=== PATIENT | male | born 1965 | race Caucasian/White ===

== ENCOUNTER 2021-07-21 08:02 | Outpatient (CLI) | payer OTHER, SELFPAY ==
--- NOTE | 2021-07-21 | USCV_ITS ---
Maite Mauricio Age: 56 Gender: M : 1965 Exam Date: 07/21/2021 08:34 Ordering Phys: Charles Driver MD Technologist: Exam [place] [facility] [place]ication: MURMUR BP: 120 / 86 HR: 77 Rhythm: Sinus Technical Quality: Adequate MEASUREMENTS (Male / Female) Normal Values 2D ECHO LV Diastolic Diameter PLAX 4.6 cm 4.2 - 5.9 / 3.9 - 5.3 cm LV Systolic Diameter PLAX 2.6 cm LV Chamber Size 3.4 cm IVS Diastolic Thickness 1.1 cm 0.6 - 1.0 / 0.6 - 0.9 cm IVS Systolic Thickness 1.6 cm LVPW Diastolic Thickness 1.2 cm 0.6 - 1.0 / 0.6 - 0.9 cm LVPW Systolic Thickness 1.6 cm RV Chamber Size 4.0 cm LVOT Diameter 2.1 cm LV Ejection Fraction 2D Teich 74.5 % LV Ejection Fraction MOD 2C 40.4 % LV Ejection Fraction 2C AL 42.3 % LA Diameter 4.7 cm LA Width 4.0 cm LA Height 4.8 cm RA Width 4.5 cm RA Height 5.2 cm M-MODE LV Diastolic Diameter MM 5.2 cm 4.2 - 5.9 / 3.9 - 5.3 cm LV Systolic Diameter MM 2.8 cm LV Ejection Fraction MM Teich 76.3 % IVS Diastolic Thickness MM 1.2 cm 0.6 - 1.0 / 0.6 - 0.9 cm IVS Systolic Thickness MM 1.8 cm LVPW Diastolic Thickness MM 1.0 cm 0.6 - 1.0 / 0.6 - 0.9 cm LVPW Systolic Thickness MM 2.2 cm RV Diastolic Diameter MM 1.7 cm Aortic Annulus Diameter 4.0 cm LA Ao Ratio MM 1.3 MV E Point Septal Separation 0.7 cm DOPPLER AV Peak Velocity 119.0 cm/s LVOT Peak Velocity 121.0 cm/s AV Area Cont Eq vti 3.7 cm squared AV Area Cont Eq pk 3.4 cm squared MV Area PHT 4.1 cm squared Mitral E to A Ratio 0.8 MV E' Velocity 51.0 cm/s Mitral E to MV E' Ratio 12.8 Mitral E to LV E' Lateral Ratio 11.1 Mitral E to LV E' Septal Ratio 15.3 TR Peak Velocity 238.2 cm/s TR Peak Gradient 22.7 mmHg TR Mean Velocity 218.8 cm/s TR Mean Gradient 21.5 mmHg TR Velocity Time Integral 75.3 cm TV Peak E Velocity 75.0 cm/s Right Atrial Pressure 5.0 mmHg Pulmonary Artery Systolic Pressu 27.7 mmHg PV Peak Velocity 94.0 cm/s RV Acceleration Time 0.3 s RV Ejection Time 0.3 s RV AcT/ET 0.9 FINDINGS Left Ventricle Normal left ventricular size, systolic function and wall thickness, with no regional wall motion abnormalities. Left ventricular ejection fraction is estimated at 70 %. Normal diastolic function. Right Ventricle Normal right ventricular size and systolic function. Right ventricular systolic pressure 27.7 mmHg. Right Atrium Normal right atrial size. Left Atrium Normal left atrial size. Mitral Valve Mitral valve not well visualized. No mitral valve stenosis. Trace mitral valve regurgitation. Aortic Valve Probably trileaflet aortic valve. No aortic valve stenosis. No aortic valve regurgitation. Tricuspid Valve Structurally normal tricuspid valve. Pulmonic Valve No pulmonary valve stenosis. Trace pulmonary valve regurgitation. Pericardium No pericardial effusion. Aorta Aorta not well visualized. CONCLUSIONS 1. Normal left ventricular size, systolic function and wall thickness, with no regional wall motion abnormalities. Left ventricular ejection fraction is estimated at 70 %. Normal diastolic function. 2. Normal right ventricular size and systolic function. 3. Pulmonary artery pressure estimated at 28 mm Hg. 4. No gross valvlar abnormality. 5. No prior similar studies to compare. Jyoti Mera MD (Electronically Signed) Final Date: 22 July 2021 13:19 S
== END 2021-07-21 08:03 | disposition home or self-care (01) ==
LOC: US 08:03
PROVIDERS: PCP Family Medicine; Visit Provider Family Medicine
DX: R01.1 Cardiac murmur, unspecified (principal)
CPT/HCPCS: 93306

== ENCOUNTER 2023-08-19 18:40 | Inpatient (IN) | payer MEDICAID, SELFPAY ==
[2023-08-19] VITALS (7 sets, daily range): BP systolic 102–134; BP diastolic 73–81; PULSE 99–115; RESP 16–26; O2SAT 91–98
--- NOTE | 2023-08-19 18:52 | ECG_ITS ---
[facility] Test Date: 2023-08-19 Pat Name: Hang Arora Department: Room: Gender: Male Seating And Mobility Technologist: : 1965 Requested By: Abilio Petersen Order Number: [id number] Mica MD: Jyoti Mera M.D. Measurements Intervals [place] Rate: 102 P: 48 UT: 202 QRS: -65 QRSD: 120 T: 84 QT: 368 QTc: 480 Interpretive Statements SINUS TACHYCARDIA WITH INTERPOLATED PVC POSSIBLE LEFT ATRIAL ENLARGEMENT [-0.1mV P-WAVE IN V1/V2] LEFT ANTERIOR FASCICULAR BLOCK [QRS AXIS <= -45, QR IN I, RS IN II] LEFT VENTRICULAR HYPERTROPHY AND ST-T CHANGE [VOLTAGE CRITERIA PLUS ST/T ABNORMALITY] POSSIBLE SEPTAL MYOCARDIAL INFARCTION , PROBABLY OLD [30 ms Q WAVE IN V1/V2] No previous ECG available for comparison Electronically Signed On 08-21-2023 18:43:09 HOSPITAL SCIENTIST by Jyoti Mera M.D. [id number]
--- NOTE | 2023-08-19 18:59 | ED_ITS ---
HPI - Pediatric SOB/Dyspnea General: Chief Complaint: Shortness of Breath/Dyspnea Stated Complaint: EPIG PAIN Time Seen by Provider: 08/19/23 18:50 History of Present Illness: 58-year-old male with history of cardiac murmur presents emergency room today due to chest pain and syncope episode. Son and reveals that patient went hunting all day today and upon getting home patient had some chest pain while driving into the house. Patient fell and hit his head against the concrete floor. Upon present emergency room patient was complaining of chest wall pain and described the pain as sharp sensation with severity of 7 out of 10 especially with movement. He denies any nausea, vomiting, bloody stool or dark stool. Patient also reviews that he had a sudden sharp pain across his chest prior to the syncope episode. [facility] ED PFSH: Medical History (Updated 08/20/23 @ 15:42 by Huber Armstrong MD) HTN (hypertension) Murmur Nephrolithiasis Pre-diabetes Restless leg syndrome Valvular heart disease Social History Smoking and tobacco/nicotine status: former use of tobacco/nicotine Quit status (tobacco/nicotine): has quit using Pediatric ROS Review of Systems: ALL SYSTEMS: reviewed and no additional remarkable complaints except as stated CONSTITUTIONAL: no weight loss or no weight gain CARDIOVASCULAR: chest pain; no palpitations, no syncope or no edema RESPIRATORY: pain with respirations GASTROINTESTINAL: no change in appetite or no dysphagia GENITOURINARY: no urgency, no frequency, no dysuria or no nocturia MUSCULOSKELETAL: pain; no redness, no weakness or no atrophy NEUROLOGICAL: delayed speech development; no seizures or no paralysis Pediatric Exam Const: Constitutional General: cooperative, alert, awake and other (In pain.); No confusion or intoxicated appearing HENMT: Head: contusion and hematoma Face and Sinuses: normal facial exam Mouth: Speech abnormal Eyes: General: appearance normal, both eyes and all related structures Neck: Neck: normal visual inspection, full ROM, no lymphadenopathy and no meningeal signs Chest: Chest: no crepitus and tenderness (Left-sided chest wall pain upon palpation. No obvious open laceration or a) rib (Tenderness) Resp: Auscultation: clear to auscultation bilaterally, diminished lung sounds, no rhonchi, no rubs, no stridor and no upper airway noise Percussion: percussion normal, no dullness to percussion and no hyperresonance Tactile Fremitus: tactile fremitus absent Cardio: Jugular venous distension: no JVD Palpation: normal PMI Rate: tachycardic Rhythm: regular rhythm and abnormal rhythm Heart sounds: Murmur heart sound present Bruits: no abdominal aortic bruit, no carotid bruit, no femoral bruit and no renal bruit Peripheral pulses: Peripheral pulses 2+ throughout GI: Inspection: Yes normal to inspection Palpation: Soft to palpation, No hepatosplenomegaly present, no guarding, no masses, not rigid, no splenomegaly and nontender Percussion: normal to percussion Skin: General: no rashes or lesions noted Neuro: General: Yes No meningeal signs and No confusion Cranial Nerves: CN's II-XII intact bilaterally Cognition: normal cognition Speech: Speech abnormal Motor Exam: 5/5 motor strength present throughout Sensory Exam: sensory deficit Pupils: bilateral: Regular round pupils laterality Extrem: General: normal to inspection Course Consultations: Consultation #1: Discussed patient with hospitalist. After reviewing patient's note and chart A- fib the patient should be started on septic protocol. Patient was given more IV fluid and started on antibiotics. Consultation #2: Discussed patient with on-call retail sales manager. Patient was started on heparin after reviewing CT head and CT chest. Vital Signs: Vital signs: Vital Signs Temperature 97.9 F 08/20/23 16:00 Pulse Rate 73 08/20/23 16:00 Respiratory Rate 20 H 08/20/23 16:00 Blood Pressure 112/78 08/20/23 16:00 Pulse Oximetry 94 08/20/23 16:00 Oxygen Delivery Me thod Room Air 08/20/23 16:00 Medical Decision Making Medical Decision Making Patient made comfortable emergency room extensive work-up including CBC, CMP, troponin, CT chest, CT head, EKG and troponin. Differential Diagnosis NM, PE, pneumonia, pneumothorax, chest wall contusion, syncope, brain bleed, meningitis, pneumonia electrolyte abnormalities Medical Records Yes I reviewed the patient's medical records. Lab Data 08/20/23 04:00 08/20/23 04:[address] 08/19/23 19:07 IMPRESSION: 1. Nondisplaced acute fractures of the anterior left 4th and 5th ribs. Mildly displaced acute fractures of the left anterior 6th and 7th ribs. No pneumothorax. 2. Bilateral dependent pulmonary opacities favored to represent atelectasis. There is no pleural effusion or pneumothorax. 3. Ectasia of the ascending thoracic aorta. 4. Extensive aortic valvular calcification versus valvular prosthesis. Head CT 08/19/23 19:07 IMPRESSION: No acute intracranial abnormality. Laboratory Results WBC 14.81 10^3/uL (3.29-11.43) H 08/19/23 18:57 RBC 4.80 10^6/uL (3.85-5.65) 08/19/23 18:57 Hgb 15.10 g/dL (11.27-16.99) 08/19/23 18:57 Hct 45.4 % (37-53) 08/19/23 18:57 MCV 94.6 fl (82-101) 08/19/23 18:57 MCH 31.5 pg (27-33) 08/19/23 18:57 MCHC 33.3 g/dL (30-55) 08/19/23 18:57 RDW 12.9 % (12.1-15.1) 08/19/23 18:57 Plt Count 166 10^3/cmm (157-399) 08/19/23 18:57 MPV 13.4 fL (7.4-10.4) H 08/19/23 18:57 Neut % (Auto) 52.8 % 08/19/23 18:57 Lymph % (Auto) 34.8 % 08/19/23 18:57 [place] % (Auto) 8.4 % 08/19/23 18:57 Eos % (Auto) 2.2 % 08/19/23 18:57 Baso % (Auto) 0.3 % 08/19/23 18:57 Neut # (Auto) 7.82 10^3/uL (1.8-7.7) H 08/19/23 18:57 Lymph # (Auto) 5.2 10^3/uL (0.8-4.8) H 08/19/23 18:57 [place] # (Auto) 1.2 10^3/uL (0.2-0.9) H 08/19/23 18:57 Eos # (Auto) 0.3 10^3/uL (0.0-0.8) 08/19/23 18:57 Baso # (Auto) 0.1 10^3/uL (0.0-0.1) 08/19/23 18:57 Nucleated RBC % (auto) 0 % 08/19/23 18:57 Nucleated RBCs # 0.0 /100WBC 08/19/23 18:57 PT 14.00 SECONDS (12.1-14.9) 08/19/23 18:57 INR 1.05 (0.8-1.2) 08/19/23 18:57 APTT 25.3 SECONDS (23.9-36.7) 08/19/23 18:57 Sodium 142 mmol/L (136-145) 08/19/23 18:57 Potassium 3.6 mmol/L (3.5-5.1) 08/19/23 18:57 Chloride 103 mmol/L (98-107) 08/19/23 18:57 Carbon Dioxide 19 mmol/L (22-29) L 08/19/23 18:57 Anion Gap 23.6 (5-19) H 08/19/23 18:57 BUN 19 mg/dL (8-23) 08/19/23 18:57 Creatinine 1.5 mg/dL (0.7-1.2) H 08/19/23 18:57 GFR Calculation 47.7 mL/min (90-130) L 08/19/23 18:57 Glucose 197 mg/dL (65-115) H 08/19/23 18:57 Estimat Average Glucose 180 08/19/23 18:57 Hemoglobin A1c 7.9 % (4.0-6.0) H 08/19/23 18:57 Calculated Osmolality 302 mOsm/kg (285-295) H 08/19/23 18:57 Calcium 9.7 mg/dL (8.5-10.5) 08/19/23 18:57 Total Bilirubin 0.5 mg/dL (0.15-1.2) 08/19/23 18:57 AST 45 U/L (0-40) H 08/19/23 18:57 ALT 54 U/L (0-41) H 08/19/23 18:57 Alkaline Phosphatase 70 U/L (40-130) 08/19/23 18:57 Troponin T Baseline 45 ng/L (0-15) H 08/19/23 18:57 Total Protein 7.0 g/dL (6.6-8.7) 08/19/23 18:57 Albumin 4.6 g/dL (3.5-5.2) 08/19/23 18:57 Globulin 2.4 g/dL (1.3-4.6) 08/19/23 18:57 Ethyl Alcohol < 10 mg/dL (0-10) 08/19/23 18:57 XR interpretation done by ED provider, pending radiology final review ECG Data EKG 1: Interpretation: Sinus tachycardia rate of 106. Nonspecific ST depression. WI interval 200 QT 347 QRS duration 122 Computer generated impression: Chest CT 08/19/23 19:07 IMPRESSION: 1. Nondisplaced acute fractures of the anterior left 4th and 5th ribs. Mildly displaced acute fractures of the left anterior 6th and 7th ribs. No pneumothorax. 2. Bilateral dependent pulmonary opacities favored to represent atelectasis. There is no pleural effusion or pneumothorax. 3. Ectasia of the ascending thoracic aorta. 4. Extensive aortic valvular calcification versus valvular prosthesis. Head CT 08/19/23 19:07 IMPRESSION: No acute intracranial abnormality. Critical Care Time Critical Care Time: Critical Care Time: Yes Total Critical Care Time: 45 Attestation: Time spent reviewing past medical records. Time spent discussing labs and x-ray report with family. Time spent discussing patient with the hospitalist and retail sales manager. Time spent reexamining and reevaluation patient after each treatment. Discharge Plan Discharge Patient Disposition: Admitted As Inpatient Admit Provider: Ovidio Rojas Clinical Impression: Acute non-ST elevation myocardial infarction (NSTEMI), Multiple fractures of ribs, Chest wall contusion, Closed head injury, Atrial tachycardia, Leukocytosis, Syncope Condition: Stable Coding Level of Care Code ED Director Of Restaurant for Heriberto Cordova
--- NOTE | 2023-08-19 19:07 | CTR_ITS ---
PROCEDURE INFORMATION: Exam: CT Head Without Contrast Exam date and time: 08/19/2023 7:27 PM Age: 58 years old Clinical indication: Syncope and collapse; Patient HX: Patient states he May have had a heart attack while sitting in [place] and passed out due to pain. Family states they performed chest compressions. Patient C/O of lower anterior rib and epigastric pain. ; Additional info: Head injury post syncope TECHNIQUE: Imaging protocol: Computed tomography of the head without contrast. Radiation optimization: All CT scans at this facility use at least one of these dose optimization techniques: automated exposure control; mA and/or kV adjustment per patient size (includes targeted exams where dose is matched to clinical indication); or iterative reconstruction. REPORTING DATA: Count of CT and Cardiac NM exams in prior 12 months: This patient has received 0 known CTs and 0 known cardiac nuclear medicine studies in the 12 months prior to the current study. COMPARISON: No relevant prior studies available. RADIATION DOSE METRICS: Total DLP (mGy-cm): 901.59 FINDINGS: Brain: No focal hemorrhage or midline shift is identified. Cerebral ventricles: No ventriculomegaly or evidence of acute hydrocephalus. Paranasal sinuses: The partially assessed sinuses are grossly clear. Mastoid air cells: Visualized mastoid air cells are well aerated. Bones/joints: No displaced skull fracture is noted. Soft tissues: Left posterior scalp swelling/hematoma. CT/CT head wo con* [id number] IMPRESSION: No acute intracranial abnormality.
--- NOTE | 2023-08-19 19:07 | CTR_ITS ---
PROCEDURE INFORMATION: Exam: CT Chest With Contrast; Diagnostic Exam date and time: 08/19/2023 7:30 PM Age: 58 years old Clinical indication: Intercostal and on breathing and left-sided; Patient HX: Patient states he May have had a heart attack while sitting in [place] tree [place] and passed out due to pain. Family states they performed chest compressions. Patient C/O of lower anterior rib and epigastric pain. ; Additional info: Trauma TECHNIQUE: Imaging protocol: Diagnostic computed tomography of the chest with contrast. Radiation optimization: All CT scans at this facility use at least one of these dose optimization techniques: automated exposure control; mA and/or kV adjustment per patient size (includes targeted exams where dose is matched to clinical indication); or iterative reconstruction. Contrast material: OMNI 350; Contrast volume: 100 ml; Contrast route: INTRAVENOUS (IV); REPORTING DATA: Count of CT and Cardiac NM exams in prior 12 months: This patient has received 0 known CTs and 0 known cardiac nuclear medicine studies in the 12 months prior to the current study. COMPARISON: No relevant prior studies available. RADIATION DOSE METRICS: Total DLP (mGy-cm): 1706.81 FINDINGS: Limitations: Streak and motion artifacts limit evaluation. Lungs: Bilateral dependent pulmonary opacities favored to represent atelectasis. Pleural spaces: Unremarkable. No pneumothorax. No pleural effusion. Heart: Extensive aortic valvular calcification versus valvular prosthesis. Coronary arteries: There is mild atherosclerotic calcification of the coronary arteries. Esophagus: No esophageal thickening. Mediastinal space: There are no enlarged mediastinal lymph nodes or masses. Lymph nodes: Multiple calcified left hilar lymph nodes. Vasculature: There is ectasia (mild dilatation) of the ascending thoracic aorta, measuring 4.2 cm in transaxial diameter at the level of the pulmonary artery. The proximal descending thoracic aorta measures 2.7 cm. No evidence of dissection or tear. Liver: No enhancing masses are seen. Bones/joints: Nondisplaced acute fractures of the anterior left 4th and 5th ribs. Mildly displaced acute fractures of the left anterior 6th and 7th ribs. Soft tissues: Unremarkable. Other findings: Motion artifact limits evaluation. No acute findings in the included upper abdomen. CT/CT chest w con* [id number] IMPRESSION: 1. Nondisplaced acute fractures of the anterior left 4th and 5th ribs. Mildly displaced acute fractures of the left anterior 6th and 7th ribs. No pneumothorax. 2. Bilateral dependent pulmonary opacities favored to represent atelectasis. There is no pleural effusion or pneumothorax. 3. Ectasia of the ascending thoracic aorta. 4. Extensive aortic valvular calcification versus valvular prosthesis.
[2023-08-19 19:25] LABS: Basophils # 0.1 10^3/uL (0.0-0.1); Basophils % 0.3 %; Eosinophils # 0.3 10^3/uL (0.0-0.8); Eosinophils % 2.2 %; Hematocrit 45.4 % (37-53); Lymphocytes # 5.2 10^3/uL (0.8-4.8); Lymphocytes % 34.8 %; Mean Corpuscular HGB Conc 33.3 g/dL (30-55); Mean Corpuscular Hemoglobin 31.5 pg (27-33); Mean Corpuscular Volume 94.6 fl (82-101); Mean Platelet Volume 13.4 fL (7.4-10.4); Monocytes # 1.2 10^3/uL (0.2-0.9); Monocytes % 8.4 %; Neutrophils # 7.82 10^3/uL (1.8-7.7); Neutrophils % 52.8 %; Nucleated Red Blood Cells % 0 %; Platelet Count 166 10^3/cmm (157-399); Red Cell Distribution Width 12.9 % (12.1-15.1); White Blood Count 14.81 10^3/uL (3.29-11.43)
[2023-08-19 19:36] LABS: INR 1.05 (0.8-1.2)
[2023-08-19 19:37] LABS: Partial Thromboplastin Time 25.3 SECONDS (23.9-36.7)
[2023-08-19 19:40] LABS: Alanine Aminotransferase 54 U/L (0-41); Albumin Level 4.6 g/dL (3.5-5.2); Alkaline Phosphatase 70 U/L (40-130); Anion Gap 23.6 (5-19); Aspartate Amino Transferase 45 U/L (0-40); Blood Urea Nitrogen 19 mg/dL (8-23); Calcium 9.7 mg/dL (8.5-10.5); Carbon Dioxide 19 mmol/L (22-29); Chloride 103 mmol/L (98-107); Globulin 2.4 g/dL (1.3-4.6); Glomerular Filtration Rate 47.7 mL/min (90-130); Glucose 197 mg/dL (65-115); Osmolality Calculated 302 mOsm/kg (285-295); Potassium 3.6 mmol/L (3.5-5.1); Sodium 142 mmol/L (136-145); Total Bilirubin 0.5 mg/dL (0.15-1.2)
[2023-08-19 19:42] LABS: Alcohol Level < 10 mg/dL (0-10); Creatinine Clr Calc Pharmacy 68.4101
[2023-08-19] MEDS: nitroglycerin 1 gm/inch oint Pkt 0.5 INCH TOPICAL (19:42)
[2023-08-19 19:43] LABS: Troponin(5th) Baseline 45 ng/L (0-15)
[2023-08-19] MEDS: ondansetron 2 mg/ML SDV 2 mL 4 MG IVP (19:44)
[2023-08-19] MEDS: iohexol 350 mg/mL 500 mL Btl (per mL) IV (19:44)
[2023-08-19] MEDS: morphine 4 mg/mL SDV 1 mL IVP (19:45)
[2023-08-19] MEDS: sodium chloride 0.9% 1,000 ML 999 ML IV (19:46)
[2023-08-19 19:54] LABS: Slide Review Slide Review Perform
--- NOTE | 2023-08-19 21:20 | ECG_ITS ---
[facility] Test Date: 2023-08-19 Pat Name: Hang Arora Department: Room: Gender: Male Pcat Instructor: : 1965 Requested By: Renata Sales Order Number: [id number] Mica MD: Jyoti Mera M.D. Measurements Intervals [place] Rate: 106 P: 62 PA: 200 QRS: -62 QRSD: 122 T: 78 QT: 347 QTc: 462 Interpretive Statements SINUS TACHYCARDIA LEFT ANTERIOR FASCICULAR BLOCK [QRS AXIS <= -45, QR IN I, RS IN II] MODERATE ST DEPRESSION [0.05+ mV ST DEPRESSION] Compared to ECG 08/19/2023 19:00:26 Left ventricular hypertrophy no longer present Myocardial infarct finding no longer present ST (T wave) deviation still present Electronically Signed On 08-21-2023 9:44:03 PAYROLL ASSISTANT by Jyoti Mera M.D. [id number]
[2023-08-19] MEDS: HYDROmorphone 1 mg/mL INJ 1 mL IVP (21:52)
[2023-08-19 21:53] LABS: Amphetamines Screen Urine Negative (Negative); Barbiturates Screen Urine Negative (Negative); Benzodiazepines Screen Urine Negative (Negative); Cocaine Screen Urine Negative (Negative); Opiate Screen Urine Positive (Negative); PCP Screen Urine Negative (Negative); THC Screen Urine Negative (Negative)
[2023-08-19] MEDS: diazePAM 5 mg Tablet PO (21:53)
[2023-08-19 22:23] LABS: Lactic Sepsis W/Reflex 1.7 mmol/L (0.5-2.2)
[2023-08-19 22:30] LABS: Troponin 5 2HR 341.9 ng/L (0-15); Troponin 5 2HR Delta 296.9 ABS# (0-10)
[2023-08-19 22:31] LABS: Ketone (Acetest) Serum Negative (Negative)
[2023-08-19 22:53] LABS: Estmated Average Glucose 180; Hemoglobin A1C 7.9 % (4.0-6.0)
[2023-08-19 22:56] LABS: Procalcitonin 0.08 ng/mL (0-0.5)
[2023-08-19 23:10] LABS: Base Excess VBG -0.8 mmol/L (-3.0-3.0); Blood Gas Sample Type Venous; HCO3 VBG 19.2 mmol/L (24-28); Oxygen Device ROOM AIR; PCO2 VBG 21.5 mmHg (41-51); Venous Blood Gas Hematocrit 46.5 % (42-52); pH VBG 7.56 (7.32-7.42)
[2023-08-20] VITALS (19 sets, daily range): BP systolic 109–125; BP diastolic 75–85; PULSE 71–92; RESP 17–24; TEMP 36.5–36.9; O2SAT 93–96
[2023-08-20 00:13] LABS: Add Urine Microscopic? YES; Amorphous Sediment Urine TRACE /hpf; Bilirubin Urine Neg (Negative); Blood Urine Trace (Negative); Glucose Urine UA 2+ (Normal); Ketones Urine 1+ (Negative); Leukocyte Esterase Urine Trace (Negative); Nitrate Urine Negative (Negative); Protein Urine 1+ (Negative); Specific Gravity, Urine 1.005 (1.005-1.030); Urine Appearance Clear (CLEAR); Urine Color Yellow (Yellow); Urobilinogen Urine Neg (Negative); pH Urine 6.5 (5-7)
[2023-08-20 00:14] LABS: Add Urine Culture? No
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
[2023-08-20] MEDS: meropenem 1,000 MG in sodium chloride 0.9% (plus) 50 ML 100 MG IV ×2 (00:22→08:31)
[2023-08-20] MEDS: aspirin 325 mg Tablet PO ×2 (00:34→21:03)
[2023-08-20] MEDS: sennosides-docusate Tablet 1 TAB PO ×3 (00:34→17:13)
[2023-08-20] MEDS: morphine 4 mg/mL SDV 1 mL 2 MG IVP (01:25)
[2023-08-20 01:27] LABS: Creatine Phosphokinase 243 U/L (39-308)
[2023-08-20 01:28] LABS: Troponin 5 6HR 259.5 ng/L (0-15); Troponin 5 6HR Delta 214.5 ng/L (0-12)
[2023-08-20] MEDS: heparin 5,000 unit/mL INJ 1 mL 4000 UNIT IVP (01:30)
[2023-08-20] MEDS: TRAMadol 50 mg Tablet PO ×2 (02:19→17:13)
[2023-08-20] MEDS: metoprolol tartrate 25 mg Tablet 12.5 MG PO ×3 (02:19→21:04)
[2023-08-20] MEDS: lactated ringers 1,000 ML 75 ML IV (02:22)
[2023-08-20] MEDS: vancomycin 2,000 MG/400 ML PIGGYBACK 200 MG IV (02:22)
[2023-08-20] MEDS: ondansetron 2 mg/ML SDV 2 mL 4 MG IVP (02:39)
[2023-08-20 02:58] LABS: Adenovirus Not Detected (NOT DETECT); Chlamydia Pneumoniae Not Detected (NOT DETECT); Coronavirus 229E,HKU1,NL63,OC4 Not Detected (NOT DETECT); Human Metapneumovirus Not Detected (NOT DETECT); Human Rhinovirus/Enterovirus Detected (NOT DETECT); Influenza A Not Detected (NOT DETECT); Influenza A H1 Not Detected (NOT DETECT); Influenza A H1-2009 Not Detected (NOT DETECT); Influenza A H3 Not Detected (NOT DETECT); Influenza B Not Detected (NOT DETECT); Mycoplasma Pneumoniae Not Detected (NOT DETECT); Parainfluenza Virus Type 1 Not Detected (NOT DETECT); Parainfluenza Virus Type 2 Not Detected (NOT DETECT); Parainfluenza Virus Type 3 Not Detected (NOT DETECT); Parainfluenza Virus Type 4 Not Detected (NOT DETECT); Respiratory Syncytial Virus A Not Detected (NOT DETECT); Respiratory Syncytial Virus B Not Detected (NOT DETECT); SARS-COV-2 Not Detected (NOT DETECT)
[2023-08-20 04:49] LABS: Basophils % 0.2 %; Eosinophils % 0.3 %; Hematocrit 40.3 % (37-53); Mean Corpuscular HGB Conc 32.8 g/dL (30-55); Mean Corpuscular Hemoglobin 30.9 pg (27-33); Mean Corpuscular Volume 94.4 fl (82-101); Mean Platelet Volume 13.5 fL (7.4-10.4); Monocytes # 0.7 10^3/uL (0.2-0.9); Monocytes % 6.5 %; Neutrophils # 8.81 10^3/uL (1.8-7.7); Neutrophils % 83.6 %; Nucleated Red Blood Cells % 0 %; Platelet Count 117 10^3/cmm (157-399); Red Blood Count 4.27 10^6/uL (3.85-5.65); Red Cell Distribution Width 12.8 % (12.1-15.1); White Blood Count 10.54 10^3/uL (3.29-11.43)
[2023-08-20] MEDS: HYDROmorphone 1 mg/mL INJ 1 mL IVP ×4 (04:49→21:15)
[2023-08-20 05:14] LABS: Alanine Aminotransferase 44 U/L (0-41); Alkaline Phosphatase 57 U/L (40-130); Anion Gap 12.3 (5-19); Aspartate Amino Transferase 39 U/L (0-40); Blood Urea Nitrogen 18 mg/dL (8-23); Calcium 8.7 mg/dL (8.5-10.5); Carbon Dioxide 27 mmol/L (22-29); Chloride 104 mmol/L (98-107); Globulin 2.5 g/dL (1.3-4.6); Glomerular Filtration Rate 61.8 mL/min (90-130); Glucose 222 mg/dL (65-115); Osmolality Calculated 297 mOsm/kg (285-295); Potassium 4.3 mmol/L (3.5-5.1); Sodium 139 mmol/L (136-145); Thyroid Stimulating Hormone 0.77 uIU/mL (0.27-4.20); Total Bilirubin 0.6 mg/dL (0.15-1.2); Total Protein 6.5 g/dL (6.6-8.7)
[2023-08-20 05:55] LABS: Slide Review Slide Review Perform
--- NOTE | 2023-08-20 06:00 | USCV_ITS ---
Hang Arora Age: 58 Gender: M : 1965 Exam Date: 08/20/2023 12:00 Ordering Phys: Ovidio Rojas MD Technologist: Rubin Caballero Exam Location: [facility] [place] Indication: SYNCOPE BP: 109 / 85 HR: 72 Rhythm: Sinus Technical Quality: Adequate MEASUREMENTS (Male / Female) Normal Values 2D ECHO LVOT Diameter 2.0 cm LV Ejection Fraction MOD 2C 59.0 % LV Ejection Fraction 2C AL 59.0 % LA Diameter 3.9 cm LA Width 4.7 cm LA Height 6.1 cm RA Width 3.9 cm RA Height 5.2 cm Aorta at Sinotubular Diameter 2.3 cm M-MODE Aortic Annulus Diameter 4.3 cm LA Ao Ratio MM 0.9 MV E Point Septal Separation 0.5 cm DOPPLER AV Peak Velocity 104.0 cm/s LVOT Peak Velocity 90.0 cm/s AV Area Cont Eq vti 2.8 cm squared AV Area Cont Eq pk 2.7 cm squared MV Peak Velocity 106.0 cm/s MV Area PHT 4.5 cm squared Mitral E to A Ratio 1.0 MV E' Velocity 44.5 cm/s Mitral E to MV E' Ratio 11.2 Mitral E to LV E' Lateral Ratio 9.0 Mitral E to LV E' Septal Ratio 15.3 TR Peak Velocity 133.6 cm/s TR Peak Gradient 7.1 mmHg TR Mean Velocity 94.1 cm/s TR Mean Gradient 4.0 mmHg TR Velocity Time Integral 28.4 cm Right Atrial Pressure 8.0 mmHg Pulmonary Artery Systolic Pressu 15.1 mmHg PV Peak Velocity 89.7 cm/s RV Acceleration Time 0.1 s RV Ejection Time 0.3 s RV AcT/ET 0.3 FINDINGS Left Ventricle Normal left ventricular size, systolic function and wall thickness, with no regional wall motion abnormalities. Normal left ventricular wall thickness. Stage I diastolic dysfunction Right Ventricle The right ventricle is normal in size and function. Right Atrium The right atrium is normal in size. Left Atrium The left atrium is normal in size. Mitral Valve Structurally normal mitral valve without significant stenosis or prolapse. There is trace mitral regurgitation. Aortic Valve Structurally normal aortic valve without significant sclerosis or stenosis. There is no aortic regurgitation. Tricuspid Valve Structurally normal tricuspid valve without significant stenosis. There is trace regurgitation. Pulmonary artery systolic pressure is normal. Pulmonic Valve Structurally normal pulmonic valve without significant stenosis. There is no pulmonic regurgitation. Pericardium Normal pericardium without effusion. Aorta Normal ascending aorta dimension. IVC The inferior vena cava appears normal. CONCLUSIONS James Kimball MD (Electronically Signed) Final Date: 20 August 2023 17:36 S
[2023-08-20 06:29] LABS: Glucose Point of Care 223 mg/dL (70-110)
[2023-08-20] MEDS: insulin lispro 100 unit/1 mL SUBCUT ×4 (08:27→22:00)
[2023-08-20] MEDS: lactulose oral liq 20 gm/30 mL UDC 10 GM PO (08:29)
[2023-08-20] MEDS: tamsulosin 0.4 mg Capsule PO (08:30)
[2023-08-20] MEDS: atorvastatin 40 mg Tablet 20 MG PO (08:31)
[2023-08-20] MEDS: allopurinol 300 mg Tablet PO (08:31)
[2023-08-20] MEDS: lidocaine 5% Patch 1 PATCH TOPICAL (08:32)
--- NOTE | 2023-08-20 09:00 | PC.NURSE ---
Patient is refusing the CTscan for kidney stones. He states that he has had them before and this is not anything like that.
[2023-08-20 09:14] LABS: Troponin T (5th) Once 168 ng/L (0-15)
--- NOTE | 2023-08-20 09:47 | ECG_ITS ---
[facility] Test Date: 2023-08-20 Pat Name: Hang Arora Department: Room: 111 Gender: Male Office Services Clerk: : 1965 Requested By: Huber Armstrong Order Number: [id number] Mica MD: Jyoti Mera M.D. Measurements Intervals [place] Rate: 74 P: 43 NJ: 200 QRS: -50 QRSD: 125 T: 65 QT: 403 QTc: 449 Interpretive Statements SINUS RHYTHM LEFT ANTERIOR FASCICULAR BLOCK [QRS AXIS <= -45, QR IN I, RS IN II] LEFT VENTRICULAR HYPERTROPHY AND ST-T CHANGE [VOLTAGE CRITERIA PLUS ST/T ABNORMALITY] Compared to ECG 08/19/2023 21:20:49 Left ventricular hypertrophy now present Sinus tachycardia no longer present ST (T wave) deviation still present Electronically Signed On 08-21-2023 8:10:36 WHEEL INSTALLER by Jyoti Mear M.D. [email or web address]
[2023-08-20] MEDS: enoxaparin 100 mg/mL Syringe 80 MG SUBCUT (11:01)
[2023-08-20] MEDS: nitroglycerin 1 gm/inch oint Pkt 2 INCH TOPICAL ×2 (11:02→21:03)
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
[2023-08-20 11:25] LABS: Glucose Point of Care 168 mg/dL (70-110)
[2023-08-20] MEDS: perflutren protein-a microsphr 0.22 mg/mL SDV 3 mL IV (12:58)
--- NOTE | 2023-08-20 15:34 | P.PN_ITS ---
Subjective Subjective: Patient was seen this morning, I had extensive discussion with patient and at bedside, he tells me that after deer hunting yesterday, as soon as he shot the deer, he was not feeling well, he had a lot of abdominal discomfort, chest discomfort, so he went back to his truck, he had this heavy sensation over his abdomen of his chest, as soon as he got out of his truck and walked through the door he passed out, his tells me that he was nonresponsive she thought he was not breathing, she did not check his pulse, she gave him CPR for about 3 to 4 minutes, until her daughter arrived and she also give him CPR for 1 to 2 minutes, patient was much more arousable thereafter, reports a chest heaviness, he continues to have these episodes of chest heaviness abdominal heaviness, that come on in waves, he tells me, denies a prior cardiovascular history, does have a family history of CAD he tells me that his brother during an angiogram procedure, discussed with cardiology, plan on doing coronary angiography tomorrow morning, he has been given therapeutic Lovenox, aspirin, statin, beta- rosalva, currently chest pain-free, will continue to monitor as inpatient, repeat troponin 168, cardiac echocardiogram has been ordered, he declines CT kidney stone, he denies any flank pain, dysuria, hematuria, UA within normal limits, we did discuss his rib fractures, possibly related to his fall, also possibly related to chest compressions, Vitals/I&O/Wt Last Vital Signs Temp 97.7 F 08/20/23 04:00 Pulse 71 08/20/23 12:00 Resp 20 H 08/20/23 12:00 BP 120/75 08/20/23 12:00 Pulse Ox 96 08/20/23 12:00 O2 Del Method Room Air 08/20/23 12:00 08/20/23 08/20/23 08/20/23 06:59 14:59 22:59 Intake Total 870 / 1870 1303.75 / 1303.75 Output Total 200 / 200 Balance 670 / 1670 1303.75 / 1303.75 Weight last 48 hrs Weight 123.831 kg Weight 117.934 kg Physical Exam Const: COMMON NORMALS: no acute distress and patient oriented x3 Resp: COMMON NORMALS: normal respiratory effort, No retractions, No use of accessory muscles and clear to auscultation bilaterally AUSCULTATION: clear to auscultation bilaterally Cardio: COMMON NORMALS: regular rate, regular rhythm, S1 normal heart sound present and S2 normal heart sound present RATE: regular rate RHYTHM: regular rhythm HEART SOUNDS: S1 normal heart sound present and S2 normal heart sound present GI: COMMON NORMALS: Normal to inspection, nondistended, normoactive bowel sounds present and non-tender Extremity: COMMON NORMALS: no pedal edema Neuro: COMMON NORMALS: patient oriented x3 Psych: COMMON NORMALS: mental status grossly normal Data 08/20/23 04:00 08/20/23 04:00 Micro: Microbiology 08/19/23 21:57 Blood Culture - Preliminary Blood SPECIMEN COLLECTED 08/19/23 21:50 Blood Culture - Preliminary Blood SPECIMEN COLLECTED A&P Assessment and plan (1) Acute non-ST elevation myocardial infarction (NSTEMI): - From history it sounds like patient had chest discomfort, followed by a true syncopal episode, followed by a pop stable cardiac arrest episode, as per family patient was in breathing, nonresponsive, requiring CPR, although no pulse was checked -Troponins elevated, 6-hour troponin 259 delta of 214 -Initial EKG no acute ST-T wave changes Plan ? Cardiology to evaluate, n.p.o. over midnight, angiogram tomorrow morning, ? Has received 1 dose of therapeutic Lovenox, ? Aspirin, statin, beta-rosalva, ? Nitro as needed for chest pain, ? Cardiac echo, ? We will continue to monitor closely in [facility] ? Full code, ? Lovenox for DVT prophylaxis (2) Syncope: (3) Leukocytosis: Likely reactive, from syncope, possible cardiac arrest, CPR, positive rhinovirus (4) Atrial tachycardia: (5) Multiple fractures of ribs: Incentive spirometer added. Continue home tramadol. Morphine IV for severe breakthrough pain is requested. Acetaminophen. Lidocaine patch. Monitor vitals, oxygenation. (6) Chest wall contusion: As above. No evidence of lung contusion on chest imaging or clinically. Monitor oxygenation. (7) ANAND (acute kidney injury): Continue IV fluids (8) Cardiac arrest: As above (9) Rhinovirus: Monitor Plan Diabetes: Accu-Cheks. Sliding scale insulin. CC diet. Would benefit from starting treatment on discharge as well. RLS: Takes tramadol at home. Continue. HTN: Hold lisinopril for now given ANAND History of heart murmur BPH: Continue tamsulosin History of nephrolithiasis: Currently with possible sepsis. UA has been sent. Requesting CT abdomen pelvis kidney stone protocol. Attestations Medical Necessity Statement*: Patient requires hospitalization, for possible cardiac arrest episode with chest pain, syncope, CPR in the field, NSTEMI, spoke to patient, spoke to patient's , spoke to cardiology, Diagnoses Acute non-ST elevation myocardial infarction (NSTEMI) I21.4 Syncope R55 Leukocytosis D72.829 Atrial tachycardia I47.19 Multiple fractures of ribs S22.49XA Chest wall contusion S20.219A ANAND (acute kidney injury) N17.9 Cardiac arrest I46.9 Rhinovirus B34.8
[2023-08-20 16:52] LABS: Glucose Point of Care 186 mg/dL (70-110)
[2023-08-20 20:58] LABS: Glucose Point of Care 161 mg/dL (70-110)
[2023-08-21] VITALS (15 sets, daily range): BP systolic 107–129; BP diastolic 75–93; PULSE 64–87; RESP 17–28; TEMP 36.8–38.1; O2SAT 90–97; BMI 24.4
[2023-08-21] MEDS: HYDROmorphone 1 mg/mL INJ 1 mL IVP ×3 (02:35→13:59)
[2023-08-21] MEDS: nitroglycerin 1 gm/inch oint Pkt 2 INCH TOPICAL (03:28)
[2023-08-21 05:30] LABS: Basophils % 0.1 %; Eosinophils # 0.2 10^3/uL (0.0-0.8); Eosinophils % 2.3 %; Hematocrit 38.5 % (37-53); Lymphocytes # 1.5 10^3/uL (0.8-4.8); Lymphocytes % 19.4 %; Mean Corpuscular HGB Conc 32.5 g/dL (30-55); Mean Corpuscular Volume 95.5 fl (82-101); Monocytes # 0.6 10^3/uL (0.2-0.9); Monocytes % 7.4 %; Neutrophils % 70.5 %; Nucleated Red Blood Cells % 0 %; Platelet Count 102 10^3/cmm (157-399); Red Blood Count 4.03 10^6/uL (3.85-5.65); Red Cell Distribution Width 12.9 % (12.1-15.1); White Blood Count 7.52 10^3/uL (3.29-11.43)
[2023-08-21 05:59] LABS: Alanine Aminotransferase 30 U/L (0-41); Albumin Level 3.9 g/dL (3.5-5.2); Alkaline Phosphatase 49 U/L (40-130); Anion Gap 11.1 (5-19); Aspartate Amino Transferase 24 U/L (0-40); Blood Urea Nitrogen 16 mg/dL (8-23); Carbon Dioxide 27 mmol/L (22-29); Chloride 104 mmol/L (98-107); Globulin 2.5 g/dL (1.3-4.6); Glomerular Filtration Rate 68.3 mL/min (90-130); Glucose 161 mg/dL (65-115); Osmolality Calculated 291 mOsm/kg (285-295); Potassium 4.1 mmol/L (3.5-5.1); Sodium 138 mmol/L (136-145); Total Bilirubin 0.7 mg/dL (0.15-1.2); Total Protein 6.4 g/dL (6.6-8.7)
[2023-08-21 06:08] LABS: Glucose Point of Care 175 mg/dL (70-110)
--- NOTE | 2023-08-21 08:43 | PM.PN ---
Subjective Subjective: Hang is 58 years old does not have any history of heart disease however he has a number of risk factors. Those include glucose intolerance, obesity, hypertension and dyslipidemia. He also has restless leg syndrome. Yesterday he was out hunting. He shot a deer and then started to feel funny. He got on his ATV and started back to the house. He walked up the steps and was on the porch and barely was able to knock on the door and then had a syncopal episode. His heard the noise and went out to find him passed out . She states he was out for 2 minutes. She said she beat on his chest for a while and then he snorted and started breathing. 911 was called and he was brought to the hospital. His vital signs have been stable. He has some rib fractures probably due to the fall. His troponin is elevated. The first was 45, the second 342 and the third to 59. His white blood cell count was initially elevated 14.8. It is now 7.5. His heart rate was elevated initially with a rhythm of sinus tachycardia. His heart rate is now normal. His creatinine was initially 1.5 now it is 1.1. He has a chest wall contusion. His blood sugars are elevated in the 200 range. His hemoglobin A1c is 7.9. Initially his transaminases were mildly elevated. They are now normal. His echo was normal. His EKG originally showed sinus tachycardia with a left anterior fascicular block. The tachycardia is now resolved. There are no ST or T wave changes. His chest wall hurts. Vitals/I&O/Wt Last Vital Signs Temp 99.7 F H 08/21/23 07:45 Pulse 72 08/21/23 07:45 Resp 23 H 08/21/23 07:45 BP 129/84 08/21/23 07:45 Pulse Ox 92 08/21/23 07:45 O2 Del Method Nasal Cannula 08/21/23 07:45 08/20/23 08/21/23 08/21/23 22:59 06:59 14:59 Intake Total 926.25 / 2230.00 Output Total 300 / 300 300 / 600 Balance 626.25 / 1930.00 -300 / 1630.00 Weight last 48 hrs Weight 175 lb Weight 273 lb Weight 260 lb Physical Exam Narrative: GENERAL: In general he is uncomfortable complaining of rib pain HEENT: Exam within normal limits. NECK: Supple without jugular vein distention. The carotid upstroke is normal without bruits. BACK: Exam normal. LUNGS: Clear. HEART: Regular rate and rhythm. ABDOMEN: Benign without organomegaly or tenderness. EXTREMITIES: No edema. NEUROLOGIC: Exam normal. SKIN: Unremarkable. Data 08/21/23 04:33 08/21/23 04:33 Micro: Microbiology 08/19/23 21:57 Blood Culture - Preliminary Blood NEGATIVE TO DATE 08/19/23 21:50 Blood Culture - Preliminary Blood NEGATIVE TO DATE A&P Assessment and plan (1) Dyslipidemia (high LDL; low HDL): (2) Diabetes: (3) HTN (hypertension): (4) Chest wall contusion: (5) Multiple fractures of ribs: (6) Elevated troponin: Plan I think he needs coronary angiography to delineate whether or not he has heart disease. The only real objective piece of information would suggest a cardiac cause would be the troponin however the troponin could be elevated for other reasons. He is EKGs do not localize anything. His echo was unremarkable. I spoke at length to him and his . We will try to perform angiography today. Attestations Medical Necessity Statement*: Needs hospitalization for management of syncope and elevated troponin. and High Time for a total of 45 minutes, includes reviewing past or interval history, examining/interviewing patient, placing orders, counseling patient/family/other support, updating patient/family/other support and documenting encounter Diagnoses Dyslipidemia (high LDL; low HDL) E78.5 Diabetes E11.9 HTN (hypertension) I10 Chest wall contusion S20.219A Multiple fractures of ribs S22.49XA Elevated troponin R79.89
--- NOTE | 2023-08-21 08:53 | XACV_ITS ---
Exam Room: 2 Ht: 180 cm Wt: 124 kg BSA: 2.54 m2 Gender: Male : 1965 Any Known Allergies: Penicillins Exam Priority: Routine Procedure(s): Procedure Description: Diagnostic procedure Procedure Description: Coronary Angiography Eliud BATEMAN; Diagnostic Cath Status: Urgent Diagnostic Findings * Patient had an episode of syncope on his front porch after deer hunting. He suffered rib fractures due to the fall. His also performed CPR for a few seconds until he came to. The initial rhythm was sinus rhythm according to the first responders. His troponin was mildly elevated however there were no other objective signs of ischemia or infarct. The right radial artery was difficult to cannulate but ultimately it was successful. Standard diagnostic catheters would not intubate the left main coronary artery due to curvature of the innominate artery and a high posterior takeoff of the left main coronary artery. After attempting multiple diagnostic catheters ultimately I used a 3.5 CLS guide to intubate the left main. Even this was somewhat challenging. * The right coronary artery is a very large dominant vessel and ends distally as the posterior descending artery and 2 posterior left ventricular branches. There is minimal up to 20% disease of the ostial posterior left ventricular branch. Otherwise the right coronary artery is normal. The left main was difficult to cannulate. There may be a 10% ostial stenosis of the left main. The LAD contains diffuse luminal irregularities but is essentially free of disease. The circumflex is similar with mild luminal irregularities but no significant disease. Conclusions 1. Mild nonobstructive coronary artery disease. Recommendations * Medical therapy. Interventional RX Recommendation: none Diagnostic RX Recommendation: none Anticoagulation: Heparin Pressures Phase:Rest AO : 90 / 66 ( 75 ) @ 9:51:00 AM 92 / 63 ( 77 ) @ 9:58:00 AM 92 / 69 ( 78 ) @ 10:12:00 AM Clinical Evaluation EBL: 5mL-10mL Procedural Details Procedure Consent Obtained. Admit Source: In Patient. Pre-Procedure Time Out. Identified patient by full name and date of as verbalized by the patient/guarantor. Does the consent match the physician's order: Yes. Accurate & Complete Informed Consent: Yes. Inpatient/Outpatient History & Physical on Chart: Yes. If H&P is completed, is and addenduem needed: No; If yes, is the addendum complete: N/A. Visualize and Verify Site with Patient/Guarantor: N/A. Relevant Radiology Images available: N/A. The risks, benefits, and alternatives of sedation and/or procedure were discussed by physician. The patient agrees to continue. Procedure started. [facility] Clinical Fraility Score: 3: Managing Well. Chest Pain Symptom Assessment: Atypical Angina. Correct patient, site and procedure confirmed by cath team. Current diagnosis: Elevated Troponin, Syncope. [employer] Indications: Syncope. PERRLA. Strong, equal hand overlock sleeve setter bilaterally. Lungs clear x 5 lobes. IV Site on Arrival: 18 gauge in the left anticubital. IV Fluids: 0.9% NaCl at KVO. 50 mL infused prior to cardiovascular lab director. Pre Procedural Pulses: bilateral radial was 3+. Pre Procedural Pulses: bilateral posterior tibial was 1+. Pre Procedural Pulses: bilateral dorsalis pedis was 1+. Oxygen started at 2liters/min via nasal canula. right radial was prepped with chloroprep then draped in the usual sterile fashion. right groin was prepped with chloroprep then draped in the usual sterile fashion. Baseline sample Acquired. HR: 89 BPM. Physician notified. Physician arrived. Physician scrubbed in. Immediate Pre-Procedure Time Out. Correct Patient: Yes; Correct Procedure: Yes; Correct Site: Yes; Correct Patient Position: Yes; Correct Supplies: Yes; Dried Flammable Prep: Yes; Blood Products Available: No;. Lidocaine 1% infiltrated to the right radial. An attempt to gain access to the right radial artery was unsuccessful. Manual pressure was held as needed to stop the bleeding. Baseline sample Acquired. HR: 90 BPM. An attempt to gain access to the right radial artery was unsuccessful. Manual pressure was held as needed to stop the bleeding. Arterial access obtained. A 5 belarusian TIG catheter in over wire. Multiple views taken of right coronary artery. Catheter redirected to the LCA. Multiple views taken of left coronary artery. Catheter removed over the exchange wire. A 5 belarusian JL5 catheter in over wire. Exchange wire in through catheter to reposition catheter. Wire out. Catheter removed over the exchange wire. A 6 belarusian TIG catheter in over wire. Multiple views taken of left coronary artery. Catheter removed over the exchange wire. 6 belarusian XB 3.5 guide catheter was inserted over the wire. Multiple views taken of left coronary artery. Guide catheter out. A TR Band was successful obtaining hemostatsis at the Right Radial artery insertion site. Physician scrubbed out. Post Procedure: Pulses reassessed and unchanged. PERRLA. Strong, equal hand overlock sleeve setter bilaterally. No VTE prophylaxis required. Medication's Wasted: Nitro = 49.8 mg. Medication's Wasted: Lidocaine 1% = 3 mL. Medication's Wasted: Heparin = 1000 unit. Medication's Wasted: Other = Fentanyl 25 mcg, Versed 1 mg. Total IV fluids: 70 mL. Post-op diagnosis: Non-obstructive CAD. Complications: None. Estimated blood loss: 5mL-10mL. Responsiveness - Normal response to verbal stimuli; alert and oriented, PERRLA. Airway - Unaffected, no intervention required; spontaneous ventilation. Circulation: W/N/L, pulses unchanged. Nausea/Vomiting: No. Procedure completed. Patient transferred by wheelchair to 1st floor. Vital chart was stopped. Access Site Site: Right Radial artery Sheath Size: 6 Fr Hemostasis Method: TR Band Hemostasis Success: Successful Procedure Medications Start: 9:24 AM Stop: 9:24 AM Medication: Fentanyl Amount: 50 mcg Route: I.V. Start: 9:32 AM Stop: 9:32 AM Medication: Versed Amount: 1 mg Route: I.V. Start: 9:35 AM Stop: 9:35 AM Medication: Versed Amount: 1 mg Route: I.V. Start: 9:42 AM Stop: 9:42 AM Medication: Fentanyl Amount: 25 mcg Route: I.V. Start: 9:48 AM Stop: 9:48 AM Medication: Nitrogylcerin Amount: 200 mcg Route: I.A. Start: 9:50 AM Stop: 9:50 AM Medication: Heparin Amount: 5000 units Route: I.V. Start: 9:50 AM Stop: 9:50 AM Medication: Versed Amount: 1 mg Route: I.V. I, the attending physician, have reviewed and verified all procedure medications. Yes, all medications given per verbal order History/Risk Factors Hypertension: Yes Dyslipidemia: Yes Peripheral Arterial Disease (PAD): No Myocardial Infarction (MN): No Obesity: Yes Renal Disease: No Tobacco Use: Former Prior Interventions PCI: No CABG: No Valve Surgery: No Report Signatures Finalized by Dr. Judah Kline MD on 08/21/2023 03:00 PM
[2023-08-21] MEDS: sodium chloride 0.9% 1,000 ML 50 ML IV (09:01)
[2023-08-21] MEDS: diphenhydrAMINE 50 mg Capsule PO (09:02)
--- NOTE | 2023-08-21 09:14 | PC.NURSE ---
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
[2023-08-21] MEDS: lactulose oral liq 20 gm/30 mL UDC 10 GM PO (11:25)
[2023-08-21] MEDS: allopurinol 300 mg Tablet PO (11:26)
[2023-08-21] MEDS: sennosides-docusate Tablet 1 TAB PO ×2 (11:26→17:19)
[2023-08-21] MEDS: atorvastatin 40 mg Tablet 20 MG PO (11:26)
[2023-08-21] MEDS: tamsulosin 0.4 mg Capsule PO (11:27)
[2023-08-21] MEDS: metoprolol tartrate 25 mg Tablet 12.5 MG PO ×2 (11:28→23:09)
[2023-08-21] MEDS: insulin lispro 100 unit/1 mL SUBCUT ×3 (11:49→21:35)
--- NOTE | 2023-08-21 11:51 | CT_ITS ---
WS: [id number] CT ABDOMEN PELVIS TECHNIQUE: Noncontrast CT of the abdomen and pelvis with coronal and sagittal reformatted images. CLINICAL INFORMATION: ruq pain COMPARISON: None. DLP: 1219.[address] scans at [facility] use at least one of these dose optimization techniques: automated e xposure control; mA and/or kV adjustment per patient size (includes targeted exams where dose is matc hed to clinical indication); or iterative reconstruction. FINDINGS: Contrast in the renal collecting systems, ureters and bladder from prior cardiac angiogram earlier to day. Tiny LEFT pleural effusion with compressive atelectasis LEFT lower lobe. Interstitial edema in t he lung bases. Noncontrast liver and gallbladder are normal. Normal noncontrast spleen. Tiny esophage al hernia. Air-fluid level in the stomach. Noncontrast pancreas is unremarkable. Normal caliber abdom inal aorta. Sigmoid diverticulosis. No evidence of acute diverticulitis. Normal appendix in the RIGHT lower quadr ant. IMPRESSION: 1. No acute findings in the abdomen or pelvis. 2. Interstitial edema in the lung bases. Tiny LEFT pleural effusion with compressive atelectasis LEF T lower lobe. 3. Air-fluid level in the stomach. Small esophageal hernia. 4. Normal appendix in the RIGHT lower quadrant. 5. No other remarkable findings.
[2023-08-21 11:59] LABS: Glucose Point of Care 193 mg/dL (70-110)
[2023-08-21] MEDS: TRAMadol 50 mg Tablet PO (12:35)
--- NOTE | 2023-08-21 13:04 | USCV_ITS ---
MaiteHang lee Age: 58 Gender: M : 1965 Exam Date: 08/21/2023 13:27 Ordering Phys: Huber Armstrong MD Technologist: Mickey Chavarria Exam Location: [facility] [place] Indication: syncope Risk Factors: Previous Vascular Surgery: Right Brachial BP: / Left Brachial BP: / Right Left Velocity (cm/s) Spectral Plaque Velocity (cm/s) Spectral Plaque Syst/Diast Broadening Syst/Diast Broadening 82.70/ 25.40 Prox CCA 55.90 / 12.40 66.20/ 23.20 Mid CCA 58.30 / 17.90 70.60/ 16.50 Distal CCA 58.30 / 17.90 56.20/ 19.80 Prox ICA 77.70 / 31.80 72.80/ 15.40 Mid ICA 90.90 / 36.50 56.20/ 16.50 Distal ICA 69.10 / 14.80 41.90 ECA 83.10 1.03 ICA/CCA 1.56 Antegrade Vertebral Antegrade 42.70/ 13.20 cm/s 30.30/ 14.00 cm/s Tri Subclavian Tri 86.20 97.10 CONCLUSIONS Right ICA stenosis <50%. Left ICA stenosis <50% . Intimal thickening in the common carotid arteries and internal carotid arteries bilaterally. Normal antegrade Doppler flow noted in the right vertebral artery. Normal antegrade Doppler flow noted in the left vertebral artery. René Bolanos MD (Electronically Signed) Final Date: 21 August 2023 15:40 S
--- NOTE | 2023-08-21 13:06 | P.DS_ITS ---
Discharge Providers Date of Admission: 08/19/23 21:43 Date of Discharge: August 22, 2023 Attending Provider at Admission: Ovidio Rojas Attending Provider at Discharge: Huber Armstrong MD Primary Care Provider: Charles Driver MD Diagnoses at Discharge Discharge Diagnosis (1) Dyslipidemia (high LDL; low HDL): Status: Acute (2) Diabetes: Status: Acute (3) HTN (hypertension): Status: Acute (4) Chest wall contusion: Status: Acute (5) Multiple fractures of ribs: Status: Acute (6) Elevated troponin: Status: Acute Reason for Visit Reason for Visit: EPIG PAIN Hospital Course Hospital Course This is a 58-year-old male, who presents to [facility] for complaints of syncopal episode, requiring CPR, and chest discomfort Patient had a syncopal episode, becoming unresponsive, requiring CPR by family members, on admission he was noted to have elevated troponins, with positive delta troponin, no acute ST-T wave changes, echocardiogram within normal limits, CT chest with contrast no pulmonary emboli, underwent cardiac angiogram, with no obstructive CAD, will be discharged home, with a close follow-up with cardiology as outpatient, discharged on the event monitor for possible cardiac arrhythmia as an etiology behind his syncopal episode. Troponin elevation, likely secondary to CPR and syncopal episode. For patient's chest discomfort, could be related to if esophageal spasms and acid reflux, will be discharged with Protonix, follow-up with general surgery in a month for consideration of EGD for severe acid reflux, If any recurrent chest pain, palpitations, please go to the emergency room For patient's rib fractures, continue incentive spirometer, continue to monitor, oxycodone to be used sparingly for pain Physical Exam Const: COMMON NORMALS: no acute distress and patient oriented x3 Resp: COMMON NORMALS: normal respiratory effort, No retractions, No use of accessory muscles and clear to auscultation bilaterally AUSCULTATION: clear to auscultation bilaterally Cardio: COMMON NORMALS: regular rate, regular rhythm, S1 normal heart sound present and S2 normal heart sound present RATE: regular rate RHYTHM: regular rhythm HEART SOUNDS: S1 normal heart sound present and S2 normal heart sound present GI: COMMON NORMALS: Normal to inspection, nondistended, normoactive bowel sounds present and non-tender Extremity: COMMON NORMALS: no pedal edema Neuro: COMMON NORMALS: patient oriented x3 Psych: COMMON NORMALS: mental status grossly normal Discharge Data Studies Completed and Pending Completed Studies During Hospitalization Category Date Time Status CT chest w con* [id number] Stat Cat Scan 08/19/23 19:[address] head wo con* [id number] Stat Cat Scan 08/19/23 19:07 Completed CV. echo wo/w contrast [id number] Routine Ultrasound 08/20/23 06:00 Completed Pending at discharge Category Date Time Status CT abdomen pelvis wo con [id number] Stat Cat Scan 08/21/23 11:51 Ordered CRISIS INTERVENTION COUNSELOR request for service Routine Exams 08/21/23 08:52 Stop Req CRISIS INTERVENTION COUNSELOR request for service Routine Exams 08/21/23 08:53 Stop Req Blood Culture Stat Lab 08/19/23 21:57 Results Complete Blood Count w/Auto AM LABS Lab 08/22/23 04:00 Ordered Comprehensive Metabolic Panel AM LABS Lab 08/22/23 04:00 Ordered VBG [Venous Blood Gas] Routine Lab 08/19/23 22:46 Results CV carotid duplex BI* [id number] Stat Ultrasound 08/21/23 13:04 Ordered Radiology Impressions Chest CT 08/19/23 19:07 IMPRESSION: 1. Nondisplaced acute fractures of the anterior left 4th and 5th ribs. Mildly displaced acute fractures of the left anterior 6th and 7th ribs. No pneumothorax. 2. Bilateral dependent pulmonary opacities favored to represent atelectasis. There is no pleural effusion or pneumothorax. 3. Ectasia of the ascending thoracic aorta. 4. Extensive aortic valvular calcification versus valvular prosthesis. Head CT 08/19/23 19:07 IMPRESSION: No acute intracranial abnormality. Laboratory Results WBC 7.52 10^3/uL (3.29-11.43) 08/21/23 04:33 RBC 4.03 10^6/uL (3.85-5.65) 08/21/23 04:33 Hgb 12.50 g/dL (11.27-16.99) 08/21/23 04:33 Hct 38.5 % (37-53) 08/21/23 04:33 MCV 95.5 fl (82-101) 08/21/23 04:33 MCH 31.0 pg (27-33) 08/21/23 04:33 MCHC 32.5 g/dL (30-55) 08/21/23 04:33 RDW 12.9 % (12.1-15.1) 08/21/23 04:33 Plt Count 102 10^3/cmm (157-399) L 08/21/23 04:33 MPV 13.0 fL (7.4-10.4) H 08/21/23 04:33 Neut % (Auto) 70.5 % 08/21/23 04:33 Lymph % (Auto) 19.4 % 08/21/23 04:33 [place] % (Auto) 7.4 % 08/21/23 04:33 Eos % (Auto) 2.3 % 08/21/23 04:33 Baso % (Auto) 0.1 % 08/21/23 04:33 Neut # (Auto) 5.30 10^3/uL (1.8-7.7) 08/21/23 04:33 Lymph # (Auto) 1.5 10^3/uL (0.8-4.8) 08/21/23 04:33 [place] # (Auto) 0.6 10^3/uL (0.2-0.9) 08/21/23 04:33 Eos # (Auto) 0.2 10^3/uL (0.0-0.8) 08/21/23 04:33 Baso # (Auto) 0.0 10^3/uL (0.0-0.1) 08/21/23 04:33 Nucleated RBC % (auto) 0 % 08/21/23 04:33 Nucleated RBCs # 0.0 /100WBC 08/21/23 04:33 PT 14.00 SECONDS (12.1-14.9) 08/19/23 18:57 INR 1.05 (0.8-1.2) 08/19/23 18:57 APTT 25.3 SECONDS (23.9-36.7) 08/19/23 18:57 Specimen Type Venous 08/19/23 22:46 Chuck Test N/a 08/19/23 22:46 VBG pH 7.56 (7.32-7.42) H 08/19/23 22:46 VBG pCO2 21.5 mmHg (41-51) L 08/19/23 22:46 VBG pO2 166.0 mmHg (25-40) H 08/19/23 22:46 VBG HCO3 19.2 mmol/L (24-28) L 08/19/23 22:46 VBG Base Excess -0.8 mmol/L (-3.0-3.0) 08/19/23 22:46 VBG Hematocrit 46.5 % (42-52) 08/19/23 22:46 O2 Delivery Device Room air 08/19/23 22:46 Turning Sander Tender ID [email or web address] 08/19/23 22:46 Sodium 138 mmol/L (136-145) 08/21/23 04:33 Potassium 4.1 mmol/L (3.5-5.1) 08/21/23 04:33 Chloride 104 mmol/L (98-107) 08/21/23 04:33 Carbon Dioxide 27 mmol/L (22-29) 08/21/23 04:33 Anion Gap 11.1 (5-19) 08/21/23 04:33 BUN 16 mg/dL (8-23) 08/21/23 04:33 Creatinine 1.1 mg/dL (0.7-1.2) 08/21/23 04:33 GFR Calculation 68.3 mL/min (90-130) L 08/21/23 04:33 Glucose 161 mg/dL (65-115) H 08/21/23 04:33 POC Glucose 193 mg/dL (70-110) H 08/21/23 11:35 Estimat Average Glucose 180 08/19/23 18:57 Hemoglobin A1c 7.9 % (4.0-6.0) H 08/19/23 18:57 Calculated Osmolality 291 mOsm/kg (285-295) 08/21/23 04:33 Lactic Acid 1.7 mmol/L (0.5-2.2) 08/19/23 21:50 Calcium 9.0 mg/dL (8.5-10.5) 08/21/23 04:33 Total Bilirubin 0.7 mg/dL (0.15-1.2) 08/21/23 04:33 AST 24 U/L (0-40) 08/21/23 04:33 ALT 30 U/L (0-41) 08/21/23 04:33 Alkaline Phosphatase 49 U/L (40-130) 08/21/23 04:33 Creatine Kinase 243 U/L (39-308) 08/20/23 00:56 Troponin T Gen 5 ng/L 168 ng/L (0-15) H* 08/20/23 08:33 Troponin T Baseline 45 ng/L (0-15) H 08/19/23 18:57 Troponin T 120 Minute 341.9 ng/L (0-15) H 08/19/23 21:50 Delta Troponin T 296.9 ABS# (0-10) H* 08/19/23 21:50 Troponin T Hi Sens 6Hr 259.5 ng/L (0-15) H 08/20/23 00:56 Troponin T Hi Sens 6Hr Delta 214.5 ng/L (0-12) H* 08/20/23 00:56 Total Protein 6.4 g/dL (6.6-8.7) L 08/21/23 04:33 Albumin 3.9 g/dL (3.5-5.2) 08/21/23 04:33 Globulin 2.5 g/dL (1.3-4.6) 08/21/23 04:33 Procalcitonin 0.08 ng/mL (0-0.5) 08/19/23 21:50 TSH 0.77 uIU/mL (0.27-4.20) 08/20/23 04:00 Urine Color Yellow (Yellow) 08/19/23 Unknown Urine Appearance Clear (CLEAR) 08/19/23 Unknown Urine pH 6.5 (5-7) 08/19/23 Unknown Ur Specific [place] 1.005 (1.005-1.030) 08/19/23 Unknown Urine Protein 1+ (Negative) H 08/19/23 Unknown Urine Glucose (UA) 2+ (Normal) H 08/19/23 Unknown Urine Ketones 1+ (Negative) H 08/19/23 Unknown Urine Blood Trace (Negative) H 08/19/23 Unknown Urine Nitrate Negative (Negative) 08/19/23 Unknown Urine Bilirubin Neg (Negative) 08/19/23 Unknown Urine Urobilinogen Neg mg/dL (Negative) 08/19/23 Unknown Ur Leukocyte Esterase Trace (Negative) H 08/19/23 Unknown Urine RBC None /hpf (0-2) 08/19/23 Unknown Urine WBC None /hpf (0-5) 08/19/23 Unknown Ur Squamous Epith Cells None /hpf (0-5) 08/19/23 Unknown Amorphous Sediment Trace /hpf 08/19/23 Unknown Urine Bacteria None /hpf (NONE) 08/19/23 Unknown Nasal Influ A H1 2009 PCR Not detected (NOT DETECT) 08/20/23 00:55 Urine Opiates Screen Positive ng/mL (Negative) H 08/19/23 Unknown Ur Barbiturates Screen Negative ng/mL (Negative) 08/19/23 Unknown Ur Phencyclidine Scrn Negative ng/mL (Negative) 08/19/23 Unknown Ur Amphetamines Screen Negative ng/mL (Negative) 08/19/23 Unknown U Benzodiazepines Scrn Negative ng/mL (Negative) 08/19/23 Unknown Urine Cocaine Screen Negative ng/mL (Negative) 08/19/23 Unknown U Marijuana (THC) Screen Negative ng/mL (Negative) 08/19/23 Unknown Ethyl Alcohol < 10 mg/dL (0-10) 08/19/23 18:57 Serum Ketones Negative (Negative) 08/19/23 21:50 Adenovirus (PCR) Not detected (NOT DETECT) 08/20/23 00:55 C. pneumoniae DNA (PCR) Not detected (NOT DETECT) 08/20/23 00:55 Coronavirus 229E (PCR) Not detected (NOT DETECT) 08/20/23 00:55 Human Metapneumovir PCR Not detected (NOT DETECT) 08/20/23 00:55 Influenza A (H1) PCR Not detected (NOT DETECT) 08/20/23 00:55 Influenza A (H3) PCR Not detected (NOT DETECT) 08/20/23 00:55 Influenza Type A (PCR) Not detected (NOT DETECT) 08/20/23 00:55 Influenza Type B (PCR) Not detected (NOT DETECT) 08/20/23 00:55 M. pneumoniae (PCR) Not detected (NOT DETECT) 08/20/23 00:55 Parainfluenza 1 (PCR) Not detected (NOT DETECT) 08/20/23 00:55 Parainfluenza 2 (PCR) Not detected (NOT DETECT) 08/20/23 00:55 Parainfluenza 3 (PCR) Not detected (NOT DETECT) 08/20/23 00:55 Parainfluenza 4 (PCR) Not detected (NOT DETECT) 08/20/23 00:55 RSV Type A (PCR) Not detected (NOT DETECT) 08/20/23 00:55 RSV Type B (PCR) Not detected (NOT DETECT) 08/20/23 00:55 Entero/Rhino (PCR) Detected (NOT DETECT) A 08/20/23 00:55 SARS-CoV-2 (PCR) Not detected (NOT DETECT) 08/20/23 00:55 Vitals Last Vital Signs Temp 99.7 F H 08/21/23 07:45 Pulse 86 08/21/23 12:00 Resp 28 H 08/21/23 12:00 BP 107/82 08/21/23 12:00 Pulse Ox 96 08/21/23 12:00 O2 Del Method Nasal Cannula 08/21/23 12:00 Discharge Plan Discharge Patient Disposition: Home Condition: Stable Prescriptions: New Protonix 40 mg tablet,delayed release (DR/EC) 40 mg PO BID 30 Days Qty: 60 0RF metformin 500 mg tablet 500 mg PO DAILY 30 Days Qty: 30 0RF oxycodone 5 mg tablet 5 mg PO Q6H PRN (Reason: pain) 7 Days Qty: 28 0RF Continued Lipitor 20 mg Tablet 20 mg PO DAILY lisinopril 20 mg Tablet 20 mg PO DAILY Flomax 0.4 mg Capsule 0.4 mg PO DAILY allopurinol 300 mg tablet 300 mg PO DAILY amitriptyline 25 mg tablet 25 mg PO BEDTIME Discontinued tramadol 50 mg tablet 50 mg PO BEDTIME Discharge Orders: Discharge Order (Routine); Ordered 08/22/23 Ordered By: Huber Armstrong Other Ambulatory Orders: MCT/Event Monitor 30 Days (Routine) Timeframe: 1 Day Facility: [facility] - Location: Radiology Ordered By: Huber Armstrong Referrals: Saji Bronson MD [Physician] - 1 month (We have notified your physician's clinic of the need for a follow-up appointment to be scheduled. If you have not heard from them within the next 2 business days, please call them directly. You may also reach out to our terminal operations manager at [phone] and she can assist you.) Judah Kline MD [Physician] - 08/25/23 11:00 am (Also, you are scheduled to have an 30 day event monitor to be placed on 09/05/23 @ 3:00P.M. ) Charles Driver MD [Primary Care Provider] - 08/28/23 2:20 pm Discharge Diet: Cardiac Discharge Activity: Resume usual activity Patient Instructions: Opioid Safety Activity Restrictions/Additional Instructions: - If you have recurrent chest pain, please go to the emergency room ? If having recurrent syncopal episodes with emergency room, follow-up cardiology in 1 week, ? If you have recurrent acid reflux follow-up with general surgery in 1 month for EGD Discharge Attestations Time Spent in Discharge Care*: greater than 30 min Quality Metrics Clinical Quality Measures [ No reported AMI, CVA or VTE this stay] Coding Level of Care Code 14410 Total time (in minutes) for Discharge: 45 Diagnoses Dyslipidemia (high LDL; low HDL) E78.5 Diabetes E11.9 HTN (hypertension) I10 Chest wall contusion S20.219A Multiple fractures of ribs S22.49XA Elevated troponin R79.89
--- NOTE | 2023-08-21 15:23 | USCV_ITS ---
Hang Arora Age: 58 Gender: M : 1965 Exam Date: 08/21/2023 18:22 Ordering Phys: Huber Armstrogn MD Technologist: RIRI [place] [facility] [place]: syncope and fall with broken rib. Patient denies history of DVT, leg pain, edema, and there is no erythema. HISTORY: syncope and fall with broken rib. Patient denies history of DVT, leg pain, edema, and there is no erythema. PROCEDURES: Venous duplex imaging was performed in bilateral lower extremities. The following venous structures were evaluated: common femoral vein, profunda vein, proximal portion of the greater saphenous vein, superficial femoral vein, and the popliteal vein. In addition, the posterior tibial and peroneal veins were evaluated. Serial compression, augmentation maneuvers, and spectral Doppler flow evaluation were performed, which were normal. Bilaterally, the common femoral, superficial femoral, profunda femoral, popliteal, posterior tibial, greater saphenous veins, and the peroneal veins were identified and interrogated in the standard fashion. These veins were found to be easily compressible with spontaneous blood flow. No evidence of thrombus noted. CONCLUSIONS No evidence of left lower extremity DVT. No evidence of right lower extremity DVT. René Bolanos MD (Electronically Signed) Final Date: 22 August 2023 09:08 S
[2023-08-21 15:54] LABS: D Dimer 0.79 ug/mLFEU (0-0.59)
[2023-08-21 16:19] LABS: Glucose Point of Care 231 mg/dL (70-110)
[2023-08-21] MEDS: psyllium powder Pkt 1 PACKET PO (17:19)
--- NOTE | 2023-08-21 17:43 | PM.PN ---
Subjective Subjective: Patient was seen this morning multiple times, he was seen before his coronary angiography he is a bit anxious about the procedure, does report chest heaviness throughout the night, and left sided chest wall discomfort, and pleurisy with taking a deep breath in, no cough, no hemoptysis, patient had coronary angiography, no evidence of obstructive CAD, he continued to complain of diffuse abdominal pain so I ordered a CT scan abdomen pelvis, to evaluate his gallbladder his liver, there was no significant findings, given that he fell, and he had chest compressions and want to make sure that there was no acute findings in the abdomen, he does have evidence of a hiatal hernia which could be playing a role to his acid reflux symptoms we discussed putting on Protonix 40 twice daily, and if in a month he continues to have acid reflux-like symptoms, have him follow-up with general surgery I think some of his chest tightness could be esophageal spasms, however he continues to complain of chest pressure, his troponins were elevated on admission, I reviewed his CT of his chest with radiology, unfortunately it was a suboptimal study for evaluation of the pulmonary arteries for pulmonary embolism, his D-dimer was elevated at 0.79, and given his episode of syncope chest discomfort requiring CPR for about 4 minutes, we discussed keeping him here in the hospital, giving him fluids overnight, and doing a CT angiogram of the chest to rule out pulmonary embolism tomorrow morning, I cannot do a CT angiogram of his chest today as he received a cardiac cath and a high contrast dye, there is a high risk of contrast-induced nephropathy, discussed risk and benefits, he voiced understanding of all consents are, agreed to proceed, we will plan on doing a CT angiogram on him tomorrow morning, Vitals/I&O/Wt Last Vital Signs Temp 99.4 F 08/21/23 15:51 Pulse 83 08/21/23 15:51 Resp 22 H 08/21/23 15:51 BP 117/86 08/21/23 15:51 Pulse Ox 96 08/21/23 15:51 O2 Del Method Room Air 08/21/23 15:51 08/21/23 08/21/23 08/21/23 06:59 14:59 22:59 Output Total 300 / 600 Balance -300 / 1630.00 Weight last 48 hrs Weight 79.379 kg Weight 123.831 kg Weight 117.934 kg Physical Exam Const: COMMON NORMALS: no acute distress and patient oriented x3 Resp: COMMON NORMALS: normal respiratory effort, No retractions, No use of accessory muscles and clear to auscultation bilaterally AUSCULTATION: clear to auscultation bilaterally Cardio: COMMON NORMALS: regular rate, regular rhythm, S1 normal heart sound present and S2 normal heart sound present RATE: regular rate RHYTHM: regular rhythm HEART SOUNDS: S1 normal heart sound present and S2 normal heart sound present GI: COMMON NORMALS: Normal to inspection, nondistended, normoactive bowel sounds present and non-tender Extremity: COMMON NORMALS: no pedal edema Neuro: COMMON NORMALS: patient oriented x3 Psych: COMMON NORMALS: mental status grossly normal Data 08/21/23 04:33 08/21/23 04:33 Micro: Microbiology 08/19/23 21:57 Blood Culture - Preliminary Blood NEGATIVE TO DATE 08/19/23 21:50 Blood Culture - Preliminary Blood NEGATIVE TO DATE A&P Assessment and plan (1) Acute non-ST elevation myocardial infarction (NSTEMI): - From history it sounds like patient had chest discomfort, followed by a true syncopal episode, followed by passable cardiac arrest episode, as per family patient was in breathing, nonresponsive, requiring CPR, although no pulse was checked -Troponins elevated, 6-hour troponin 259 delta of 214 -Initial EKG no acute ST-T wave changes Plan ? Cardiology to evaluate, coronary angiography, no obstructive CAD, could possibly a cardiac arrhythmia, will discharge with event monitor tomorrow ? As his CT of his chest was a suboptimal study for a PE, D-dimer is elevated troponins are elevated, has chest discomfort we will order a CT angiogram of the chest tomorrow ? Aspirin, statin, beta-rosalva, ? We will continue to monitor closely in [facility] ? Full code, ? Lovenox for DVT prophylaxis (2) Syncope: (3) Leukocytosis: Likely reactive, from syncope, possible cardiac arrest, CPR, positive rhinovirus (4) Atrial tachycardia: (5) Multiple fractures of ribs: Incentive spirometer added. Continue home tramadol. Morphine IV for severe breakthrough pain is requested. Acetaminophen. Lidocaine patch. Monitor vitals, oxygenation. (6) Chest wall contusion: As above. No evidence of lung contusion on chest imaging or clinically. Monitor oxygenation. (7) ANAND (acute kidney injury): Continue IV fluids (8) Cardiac arrest: As above (9) Rhinovirus: Monitor Plan Diabetes: Accu-Cheks. Sliding scale insulin. CC diet. Would benefit from starting treatment on discharge as well. RLS: Takes tramadol at home. Continue. HTN: Hold lisinopril for now given ANAND History of heart murmur BPH: Continue tamsulosin History of nephrolithiasis: Currently with possible sepsis. UA has been sent. Requesting CT abdomen pelvis kidney stone protocol. Attestations Medical Necessity Statement*: Patient requires hospitalization for cardiac arrest episode, CPR required, etiology unclear, requiring CT angiogram of the chest tomorrow Diagnoses Acute non-ST elevation myocardial infarction (NSTEMI) I21.4 Syncope R55 Leukocytosis D72.829 Atrial tachycardia I47.19 Multiple fractures of ribs S22.49XA Chest wall contusion S20.219A ANAND (acute kidney injury) N17.9 Cardiac arrest I46.9 Rhinovirus B34.8
--- NOTE | 2023-08-21 18:30 | PC.NURSE ---
Patient was feeling flushed and nurse took temperature it is 100.6. Provider was notified.
[2023-08-21] MEDS: HYDROcodone-acetaminophen 5-325 mg Tablet 1 TAB PO ×2 (18:50→23:04)
[2023-08-21] MEDS: acetaminophen 325 mg Tablet 650 MG PO (18:51)
--- NOTE | 2023-08-21 19:15 | PC.NURSE ---
Patient came from cardiac catheterization technician with a right radial TR-band. 2ml's of air is removed at 1225. 2ml's of air is removed at 1330. 2ml's of air is removed at 1430. 2ml's of air is removed at 1450. 2ml's of air is removed at 1600. 2 ml's of air is removed at 1728. TR-band is removed at 1800. A 2 x 2 and tegaderm dressing is applied. No hematoma is noted. Patient tolerated well.
[2023-08-21 21:02] LABS: Glucose Point of Care 166 mg/dL (70-110)
[2023-08-21] MEDS: amitriptyline 25 mg Tablet PO (21:35)
[2023-08-21] MEDS: enoxaparin 40 mg/0.4 mL Syringe SUBCUT (23:04)
[2023-08-21] MEDS: sodium chloride 0.9% 1,000 ML 75 ML IV (23:10)
[2023-08-22] VITALS (7 sets, daily range): BP systolic 105–126; BP diastolic 62–90; PULSE 63–80; RESP 14–21; TEMP 36.6–36.9; O2SAT 91–96
[2023-08-22] MEDS: HYDROcodone-acetaminophen 5-325 mg Tablet 1 TAB PO (04:19)
[2023-08-22 04:58] LABS: Basophils % 0.3 %; Eosinophils # 0.3 10^3/uL (0.0-0.8); Eosinophils % 3.7 %; Hematocrit 41.8 % (37-53); Lymphocytes # 1.4 10^3/uL (0.8-4.8); Lymphocytes % 19.8 %; Mean Corpuscular HGB Conc 33.3 g/dL (30-55); Mean Corpuscular Hemoglobin 31.4 pg (27-33); Mean Corpuscular Volume 94.6 fl (82-101); Monocytes # 0.6 10^3/uL (0.2-0.9); Monocytes % 8.1 %; Neutrophils # 4.74 10^3/uL (1.8-7.7); Neutrophils % 67.7 %; Nucleated Red Blood Cells % 0 %; Platelet Count 122 10^3/cmm (157-399); Red Blood Count 4.42 10^6/uL (3.85-5.65); Red Cell Distribution Width 12.4 % (12.1-15.1); White Blood Count 7.01 10^3/uL (3.29-11.43)
[2023-08-22 05:20] LABS: Alanine Aminotransferase 26 U/L (0-41); Albumin Level 4.2 g/dL (3.5-5.2); Alkaline Phosphatase 61 U/L (40-130); Anion Gap 12.4 (5-19); Aspartate Amino Transferase 25 U/L (0-40); Blood Urea Nitrogen 15 mg/dL (8-23); Calcium 9.8 mg/dL (8.5-10.5); Carbon Dioxide 29 mmol/L (22-29); Chloride 101 mmol/L (98-107); Globulin 2.9 g/dL (1.3-4.6); Glomerular Filtration Rate 68.3 mL/min (90-130); Glucose 165 mg/dL (65-115); Osmolality Calculated 291 mOsm/kg (285-295); Potassium 4.4 mmol/L (3.5-5.1); Sodium 138 mmol/L (136-145); Total Bilirubin 0.7 mg/dL (0.15-1.2); Total Protein 7.1 g/dL (6.6-8.7)
[2023-08-22 06:55] LABS: Glucose Point of Care 178 mg/dL (70-110)
--- NOTE | 2023-08-22 07:00 | CT_ITS ---
WS: [id number] CTA OF THE CHEST WITH PULMONARY EMBOLISM PROTOCOL TECHNIQUE: High-resolution contrast enhanced CTA of the chest with coronal and sagittal reformatted i mages with pulmonary embolism protocol. MIP images are also reviewed. CLINICAL INFORMATION: evaluate for pe COMPARISON: CT 08/19/2023 DLP: 475.[address] scans at [facility] use at least one of these dose optimization techniques: automated e xposure control; mA and/or kV adjustment per patient size (includes targeted exams where dose is matc hed to clinical indication); or iterative reconstruction. FINDINGS: Multiple anterior left-sided rib fractures fourth through seventh ribs previously described. No pneum othorax. Chronic emphysematous changes. Bibasilar atelectasis. Trace LEFT pleural fluid with slight c ompressive atelectasis LEFT lower lobe. Cardiomegaly. Proximal main pulmonary arteries are normal. Normal segmental and subsegmental pulmonary arteries. No evidence of pulmonary embolus. Normal caliber thoracic aorta. Normal caliber descending thoracic aor ta. Adrenal glands are normal. Small esophageal hiatal hernia. IMPRESSION: 1. No evidence of acute pulmonary embolus 2. Increased trace LEFT pleural fluid with bibasilar atelectasis.
--- NOTE | 2023-08-22 07:38 | PM.PN ---
Subjective Subjective: Hang has had a bad night. His ribs hurt. He tells me that they cut back my pain medications . He struggled to be able to lie down in bed and to breathe. He has had a abdomen and pelvis CT since his angiogram. This was normal. He also had a carotid duplex which was normal. The plan is for a CT of the chest today to rule out a pulmonary embolism. He tells me this morning that he still thinks he had a heart attack. He says it does not make any sense that he had chest pain and passed out and did not have a heart attack. I explained to him yesterday that troponins can be elevated in the absence of a heart attack. Vitals/I&O/Wt Last Vital Signs Temp 98.0 F 08/22/23 04:28 Pulse 63 08/22/23 06:00 Resp 18 08/22/23 04:28 BP 121/86 08/22/23 04:28 Pulse Ox 94 08/22/23 04:28 O2 Del Method Room Air 08/22/23 04:28 08/21/23 08/22/23 08/22/23 22:59 06:59 14:59 Intake Total 1000 / 1000 Balance 1000 / 1000 Weight last 48 hrs Weight 175 lb Physical Exam Narrative: GENERAL: In general he looks and feels well but is complaining of chest pain at the site of rib fractures. HEENT: Exam within normal limits. NECK: Supple without jugular vein distention. The carotid upstroke is normal without bruits. BACK: Exam normal. LUNGS: Clear. HEART: Regular rate and rhythm. ABDOMEN: Benign without organomegaly or tenderness. EXTREMITIES: No edema. NEUROLOGIC: Exam normal. SKIN: Unremarkable. Data 08/22/23 04:14 08/22/23 04:14 A&P Assessment and plan (1) Elevated troponin: (2) Diabetes: (3) Dyslipidemia (high LDL; low HDL): (4) HTN (hypertension): (5) Chest wall contusion: (6) Syncope: Plan His pain medication should be adjusted to adequately control his pain prior to his discharge. Cardiac redmond, he is doing well. The entry site is without bleeding, hematoma or vascular anomaly. Attestations Medical Necessity Statement*: May be discharged today. and Moderate Time for a total of 30 minutes, includes reviewing past or interval history, examining/interviewing patient, counseling patient/family/other support, updating patient/family/other support and documenting encounter Diagnoses Elevated troponin R79.89 Diabetes E11.9 Dyslipidemia (high LDL; low HDL) E78.5 HTN (hypertension) I10 Chest wall contusion S20.219A Syncope R55
[2023-08-22] MEDS: HYDROmorphone 1 mg/mL INJ 1 mL IVP (08:19)
[2023-08-22] MEDS: lactulose oral liq 20 gm/30 mL UDC 10 GM PO (08:20)
[2023-08-22] MEDS: sennosides-docusate Tablet 1 TAB PO (08:20)
[2023-08-22] MEDS: metoprolol tartrate 25 mg Tablet 12.5 MG PO (08:20)
[2023-08-22] MEDS: atorvastatin 40 mg Tablet 20 MG PO (08:20)
[2023-08-22] MEDS: allopurinol 300 mg Tablet PO (08:20)
[2023-08-22] MEDS: tamsulosin 0.4 mg Capsule PO (08:20)
[2023-08-22] MEDS: insulin lispro 100 unit/1 mL SUBCUT (08:21)
[2023-08-22] MEDS: iohexol 350 mg/mL 500 mL Btl (per mL) IV (08:52)
[2023-08-22 10:48] LABS: Glucose Point of Care 238 mg/dL (70-110)
[2023-08-22] MEDS: oxyCODONE 5 mg IR Tab/Cap PO (12:12)
== END 2023-08-22 14:36 | disposition home or self-care (01) | DRG 312 ==
LOC: ER 19:17 → CSU 22:05
PROVIDERS: Internal Medicine Cardiovascular Disease; Admitting Provider Internal Medicine; Emergency Provider Family Medicine; PCP Family Medicine; Visit Provider Family Medicine
DX: R55 Syncope and collapse (principal); S22.42XA Multiple fractures of ribs, left side, initial encounter for closed fracture; J98.11 Atelectasis; I47.19 Other supraventricular tachycardia; E87.4 Mixed disorder of acid-base balance; N17.9 Acute kidney failure, unspecified; R79.89 Other specified abnormal findings of blood chemistry; K21.9 Gastro-esophageal reflux disease without esophagitis; K44.9 Diaphragmatic hernia without obstruction or gangrene; I10 Essential (primary) hypertension; E11.65 Type 2 diabetes mellitus with hyperglycemia; G25.81 Restless legs syndrome; Z87.891 Personal history of nicotine dependence; R01.1 Cardiac murmur, unspecified; E88.810 Metabolic syndrome; E78.5 Hyperlipidemia, unspecified; E86.0 Dehydration; N40.0 Benign prostatic hyperplasia without lower urinary tract symptoms; E66.9 Obesity, unspecified; B97.89 Other viral agents as the cause of diseases classified elsewhere; W18.39XA Other fall on same level, initial encounter; Y92.028 Other place in mobile home as the place of occurrence of the external cause; S20.219A Contusion of unspecified front wall of thorax, initial encounter
CPT/HCPCS: 36415; 36416; 70450; 71260; 71275; 74176; 80053; 80306; 80307; 81001; 81003; 82009; 82550; 82803; 82962; 83036; 83605; 84145; 84443; 84484; 85025; 85378; 85610; 85730; 87040; 87486; 87581; 87633; 93005; 93454; 93880; 93970; 96365; 96367; 96372; 96375; 96376; 99152; 99153; 99285; C1769; C1887; C1894; C8929; J1170; J1644; J1650; J1815; J2185; J2250; J2270; J2405; J3010; J3372; J3490; J7030; J7120; Q0163; Q9956; Q9967

== ENCOUNTER 2023-09-07 11:49 | Outpatient (CLI) | payer MEDICAID, SELFPAY ==
--- NOTE | 2023-09-07 | USCV_ITS ---
Hang Arora Age: 58 Gender: M : 1965 Exam Date: 09/07/2023 12:06 Ordering Phys: Charles Driver MD Technologist: Shirley Archer [place] [facility] [place]: ESTASIA OF THE AORTA BP: 130 / 75 HR: 89 Rhythm: Sinus Technical Quality: Adequate MEASUREMENTS (Male / Female) Normal Values 2D ECHO LV Diastolic Diameter PLAX 3.6 cm 4.2 - 5.9 / 3.9 - 5.3 cm LV Systolic Diameter PLAX 2.6 cm LV Chamber Size 3.6 cm IVS Diastolic Thickness 1.3 cm 0.6 - 1.0 / 0.6 - 0.9 cm IVS Systolic Thickness 1.6 cm LVPW Diastolic Thickness 1.7 cm 0.6 - 1.0 / 0.6 - 0.9 cm LVPW Systolic Thickness 1.3 cm RV Chamber Size 3.5 cm LVOT Diameter 2.1 cm LV Ejection Fraction 2D Teich 56.7 % LV Ejection Fraction MOD 2C 61.2 % LV Ejection Fraction 2C AL 61.3 % LA Diameter 3.3 cm LA Width 4.3 cm LA Height 4.9 cm RA Width 5.1 cm RA Height 4.3 cm Aorta at Sinotubular Diameter 3.5 cm M-MODE Aortic Annulus Diameter 3.3 cm LA Ao Ratio MM 1.1 MV E Point Septal Separation 0.7 cm DOPPLER AV Peak Velocity 314.2 cm/s LVOT Peak Velocity 100.0 cm/s AV Area Cont Eq vti 1.2 cm squared AV Area Cont Eq pk 1.1 cm squared MV Area PHT 6.9 cm squared Mitral E to A Ratio 0.7 MV E' Velocity 43.0 cm/s Mitral E to MV E' Ratio 14.8 Mitral E to LV E' Lateral Ratio 15.1 Mitral E to LV E' Septal Ratio 14.8 TR Peak Velocity 147.7 cm/s TR Peak Gradient 8.7 mmHg TR Mean Velocity 103.1 cm/s TR Mean Gradient 4.9 mmHg TR Velocity Time Integral 28.8 cm TV Peak E Velocity 64.0 cm/s PV Peak Velocity 86.0 cm/s RV Acceleration Time 0.1 s RV Ejection Time 0.3 s RV AcT/ET 0.5 FINDINGS Left Ventricle Increased left ventricular wall thickness. Normal left ventricular size. Overall LV systolic function is normal with mild hypokinesis of inferior wall. LVEF is estimated at 60 %. Right Ventricle Normal right ventricular size and systolic function. Right Atrium Normal right atrial size. Left Atrium Normal left atrial size. Mitral Valve Mildly thickened mitral valve. No mitral valve stenosis. Trace mitral valve regurgitation. Aortic Valve Thickened aortic valve. Moderately severe aortic stenosis. Peak systolic gradient 80 mmHg, mean gradient 38 mmHg, Ultratard valve area 1.1 cm2. Tricuspid Valve Structurally normal tricuspid valve. Trace tricuspid valve regurgitation. Pulmonic Valve Pulmonic valve not well visualized. Trace pulmonary valve regurgitation. Pericardium No pericardial effusion. Aorta Normal size aortic root and proximal ascending aorta. IVC Normal IVC dimension with >50% respiratory change of the inferior vena cava. CONCLUSIONS Technically difficult echo patient still have a significant rib pain or his left side of chest due to recent CPR on August 19, 2023. Mild left ventricle hypertrophy. Overall left ventricle systolic function normal there is mild hypokinesis of inferior wall. Normal chamber sizes. Aortic valve is thickened and calcified with restrictive movement of leaflets. Overall moderately severe aortic stenosis as per gradient and calculated valve area (peak gradient 80 mmHg, mean gradient 38 mmHg, valve area 1.1 cm squared). Right heart and pulmonary pressures normal. With the significant pain over rib cage related to recent CPR, the assessment of aortic valve may need to be repeated if clinically indicated. Eitan Duron MD (Electronically Signed) Final Date: 07 September 2023 13:11 S
== END 2023-09-07 11:50 | disposition home or self-care (01) ==
LOC: RAD 11:50
PROVIDERS: PCP Family Medicine; Visit Provider Family Medicine
DX: I77.810 Thoracic aortic ectasia (principal); R07.81 Pleurodynia; I51.7 Cardiomegaly; I35.8 Other nonrheumatic aortic valve disorders; I35.0 Nonrheumatic aortic (valve) stenosis
CPT/HCPCS: 93306

== ENCOUNTER 2023-09-19 19:40 | Emergency (ER) | payer MEDICAID, SELFPAY ==
--- NOTE | 2023-09-19 19:41 | XRR_ITS ---
PROCEDURE INFORMATION: Exam: XR Chest Exam date and time: 09/19/2023 7:49 PM Age: 58 years old Clinical indication: Pain; Chest pressure; Additional info: Cp TECHNIQUE: Imaging protocol: Radiologic exam of the chest. Views: 1 view. COMPARISON: CT angio chest PE protcl [id number] 08/22/2023 8:46 AM FINDINGS: Lungs: Unremarkable. No consolidation. Pleural spaces: Unremarkable. No pleural effusion. No pneumothorax. Heart/Mediastinum: Unremarkable. No cardiomegaly. Bones/joints: Unremarkable. XR/XR chest 1V portable [id number] IMPRESSION: No acute findings.
[2023-09-19 19:50] VITALS: BP 120/82; PULSE 129; RESP 18; TEMP 36.4; O2SAT 98; BMI 33.5
--- NOTE | 2023-09-19 20:10 | ED_ITS ---
HPI - Arrhythmia/Palpitations 2 General: Chief Complaint: Arrhythmia/Palpitations Stated Complaint: cp Time Seen by Provider: 09/19/23 20:03 Source: patient Mode of arrival: ambulatory Limitations: no limitations History of Present Illness: 58-year-old male who had been admitted [facility] October after a syncopal event and had a CTA showed no PE had a cath that was normal patient can follow-up with cardiology has had a heart monitor he states that today he is just felt like his heart is been racing he has not felt right he appears extremely anxious here and is tachycardic. States he did eat a 10 mg marijuana gummy today. Denies any severe pains denies any severe shortness of breath Associated symptoms: Deny nausea or vomiting Review of Systems 2 Const: Denies: fever(s), chills, body aches or change in appetite ENMT: Denies: throat pain or dental pain Card: Reports: palpitations; Denies: chest pain Resp: Denies: dyspnea GI: Denies: abdominal pain, nausea, vomiting or diarrhea : Denies: dysuria Musc: Denies: neck pain or back pain Skin/Breast: Denies: rash Neuro: Denies: headache(s) PFSH ED 2 PFSH: Medical History Coronary artery disease Elevated troponin Murmur Valvular heart disease HTN (hypertension) Pre-diabetes Nephrolithiasis Restless leg syndrome Social History Smoking and tobacco/nicotine status: former use of tobacco/nicotine Quit status (tobacco/nicotine): has quit using Physical Exam 2 Const: COMMON NORMALS: no acute distress, patient oriented x3 and healthy appearing HENMT: COMMON NORMALS: normocephalic and atraumatic HEAD & SCALP: n ormocephalic and atraumatic Neck/C-Spine: COMMON NORMALS: full ROM and supple Chest: COMMONS NORMALS: normal inspection of the chest and normal palpation of entire chest wall Resp: COMMON NORMALS: normal respiratory effort, No retractions, No use of accessory muscles and clear to auscultation bilaterally AUSCULTATION: clear to auscultation bilaterally Cardio: COMMON NORMALS: regular rhythm and No murmurs present (Cardio) R ATE: tachycardic RHYTHM: regular rhythm GI: COMMON NORMALS: Normal to inspection, nondistended, normoactive bowel sounds present, Soft to palpation, non-tender and no masses PALPATION: Yes Soft to palpation Extremity: COMMON NORMALS: normal to inspection and full ROM Neuro: COMMON NORMALS: patient oriented x3, moves all extremities and no focal motor deficits Psych: COMMON NORMALS: mental status grossly normal, Normal thought process present and cooperative THOUGHT PROCESS: Normal thought process present Skin: COMMON NORMALS: no rashes or lesions noted and no wounds GENERAL SKIN EXAM: no rashes or lesions noted Course 2 Vital Signs: Vital signs: Vital Signs Temperature 97.6 F 09/19/23 19:50 Pulse Rate 129 H 09/19/23 19:50 Respiratory Rate 18 09/19/23 19:50 Blood Pressure 120/82 09/19/23 19:50 Pulse Oximetry 98 09/19/23 19:50 Oxygen Delivery Me thod Room Air 09/19/23 19:50 MDM - Arrhythmia/Palpitations Medical Decision Making Patient presents here with palpitations likely anxiety reaction patient also eaten a marijuana gummy earlier he feels much improved here after Ativan his heart rates improved patient's troponin here is normal no signs of acute coronary syndrome or pulmonary embolism he is stable for discharge she has follow-up with cardiology next week follow-up as scheduled return if worsening. Medical Records I reviewed the patient's medical records. Lab Data I reviewed the patient's lab results. 09/19/23 20:20 09/19/23 17:50 Radiology Impressions Chest X-Ray 09/19/23 19:41 IMPRESSION: No acute findings. Laboratory Results WBC 6.53 10^3/uL (3.29-11.43) 09/19/23 20:20 RBC 4.41 10^6/uL (3.85-5.65) 09/19/23 20:20 Hgb 13.60 g/dL (11.27-16.99) 09/19/23 20:20 Hct 39.5 % (37-53) 09/19/23 20:20 MCV 89.6 fl (82-101) 09/19/23 20:20 MCH 30.8 pg (27-33) 09/19/23 20:20 MCHC 34.4 g/dL (30-55) 09/19/23 20:20 RDW 12.2 % (12.1-15.1) 09/19/23 20:20 Plt Count 127 10^3/cmm (157-399) L 09/19/23 20:20 MPV 12.1 fL (7.4-10.4) H 09/19/23 20:20 Neut % (Auto) 68.5 % 09/19/23 20:20 Lymph % (Auto) 21.4 % 09/19/23 20:20 [place] % (Auto) 6.6 % 09/19/23 20:20 Eos % (Auto) 2.9 % 09/19/23 20:20 Baso % (Auto) 0.3 % 09/19/23 20:20 Neut # (Auto) 4.47 10^3/uL (1.8-7.7) 09/19/23 20:20 Lymph # (Auto) 1.4 10^3/uL (0.8-4.8) 09/19/23 20:20 [place] # (Auto) 0.4 10^3/uL (0.2-0.9) 09/19/23 20:20 Eos # (Auto) 0.2 10^3/uL (0.0-0.8) 09/19/23 20:20 Baso # (Auto) 0.0 10^3/uL (0.0-0.1) 09/19/23 20:20 Nucleated RBC % (auto) 0 % 09/19/23 20:20 Nucleated RBCs # 0.0 /100WBC 09/19/23 20:20 PT 14.20 SECONDS (12.1-14.9) 09/19/23 20:20 INR 1.07 (0.8-1.2) 09/19/23 20:20 Sodium 134 mmol/L (136-145) L 09/19/23 17:50 Potassium 3.9 mmol/L (3.5-5.1) 09/19/23 17:50 Chloride 99 mmol/L (98-107) 09/19/23 17:50 Carbon Dioxide 24 mmol/L (22-29) 09/19/23 17:50 Anion Gap 14.9 (5-19) 09/19/23 17:50 BUN 13 mg/dL (8-23) 09/19/23 17:50 Creatinine 1.2 mg/dL (0.7-1.2) 09/19/23 17:50 GFR Calculation 61.8 mL/min (90-130) L 09/19/23 17:50 Glucose 282 mg/dL (65-115) H 09/19/23 17:50 POC Glucose 244 mg/dL (70-110) H 09/19/23 20:19 Calculated Osmolality 288 mOsm/kg (285-295) 09/19/23 17:50 Calcium 9.1 mg/dL (8.5-10.5) 09/19/23 17:50 Total Bilirubin 0.4 mg/dL (0.15-1.2) 09/19/23 17:50 AST 29 U/L (0-40) 09/19/23 17:50 ALT 36 U/L (0-41) 09/19/23 17:50 Alkaline Phosphatase 76 U/L (40-130) 09/19/23 17:50 Troponin T Baseline 15 ng/L (0-15) 09/19/23 20:20 Total Protein 6.6 g/dL (6.6-8.7) 09/19/23 17:50 Albumin 4.2 g/dL (3.5-5.2) 09/19/23 17:50 Globulin 2.4 g/dL (1.3-4.6) 09/19/23 17:50 All radiology interpretation(s) finalized by discharge EKG Data EKG 1: I personally reviewed and interpreted this EKG as follows: EKG interpretation date: 09/19/23 EKG interpretation time: 19:45 Interpretation: sinus tach hr [address] or t wave abnormalities qrs 111 qtc 389 Other EKG comments: Chest X-Ray 09/19/23 19:41 IMPRESSION: No acute findings. Discharge Plan Discharge Patient Disposition: Home Clinical Impression: Palpitations Condition: Stable Prescriptions: No Action Lipitor 20 mg Tablet 20 mg PO DAILY lisinopril 20 mg Tablet 20 mg PO DAILY Flomax 0.4 mg Capsule 0.4 mg PO DAILY allopurinol 300 mg tablet 300 mg PO DAILY amitriptyline 25 mg tablet 25 mg PO BEDTIME Protonix 40 mg tablet,delayed release (DR/EC) 40 mg PO BID 30 Days Qty: 60 0RF metformin 500 mg tablet 500 mg PO DAILY 30 Days Qty: 30 0RF Discharge Orders: Discharge ED (Routine); Ordered 09/19/23 Ordered By: Raymond Myers Referrals: Charles Driver MD [Primary Care Provider] - 1-3 days Discharge Diet: Advance as tolerated Discharge Activity: Resume usual activity Patient Instructions: Heart Palpitations (ED) Coding Level of Care Code ED Aviation Medicine Specialist for Heriberto Cordova
[2023-09-19 20:22] LABS: Glucose Point of Care 244 mg/dL (70-110)
[2023-09-19 20:34] LABS: Basophils % 0.3 %; Eosinophils # 0.2 10^3/uL (0.0-0.8); Eosinophils % 2.9 %; Hematocrit 39.5 % (37-53); Lymphocytes # 1.4 10^3/uL (0.8-4.8); Lymphocytes % 21.4 %; Mean Corpuscular HGB Conc 34.4 g/dL (30-55); Mean Corpuscular Hemoglobin 30.8 pg (27-33); Mean Corpuscular Volume 89.6 fl (82-101); Mean Platelet Volume 12.1 fL (7.4-10.4); Monocytes # 0.4 10^3/uL (0.2-0.9); Monocytes % 6.6 %; Neutrophils # 4.47 10^3/uL (1.8-7.7); Neutrophils % 68.5 %; Nucleated Red Blood Cells % 0 %; Platelet Count 127 10^3/cmm (157-399); Red Blood Count 4.41 10^6/uL (3.85-5.65); Red Cell Distribution Width 12.2 % (12.1-15.1); White Blood Count 6.53 10^3/uL (3.29-11.43)
[2023-09-19 20:54] LABS: INR 1.07 (0.8-1.2)
[2023-09-19 21:00] LABS: Alanine Aminotransferase 36 U/L (0-41); Albumin Level 4.2 g/dL (3.5-5.2); Alkaline Phosphatase 76 U/L (40-130); Anion Gap 14.9 (5-19); Aspartate Amino Transferase 29 U/L (0-40); Blood Urea Nitrogen 13 mg/dL (8-23); Calcium 9.1 mg/dL (8.5-10.5); Carbon Dioxide 24 mmol/L (22-29); Chloride 99 mmol/L (98-107); Globulin 2.4 g/dL (1.3-4.6); Glomerular Filtration Rate 61.8 mL/min (90-130); Glucose 282 mg/dL (65-115); Osmolality Calculated 288 mOsm/kg (285-295); Potassium 3.9 mmol/L (3.5-5.1); Sodium 134 mmol/L (136-145); Total Bilirubin 0.4 mg/dL (0.15-1.2); Total Protein 6.6 g/dL (6.6-8.7)
[2023-09-19 21:02] LABS: Troponin(5th) Baseline 15 ng/L (0-15)
== END 2023-09-19 22:05 | disposition home or self-care (01) ==
PROVIDERS: Emergency Provider Emergency Medicine; PCP Family Medicine
DX: R00.2 Palpitations (principal); I25.10 Atherosclerotic heart disease of native coronary artery without angina pectoris; I10 Essential (primary) hypertension; Z87.891 Personal history of nicotine dependence
CPT/HCPCS: 36416; 71045; 80053; 82962; 84484; 85025; 85610; 96374; 99285; J2060

== ENCOUNTER 2024-04-23 10:32 | Emergency (ER) | payer MEDICAID, SELFPAY ==
[2024-04-23] MEDS: succinylcholine 20 mg/mL SDV 10mL 120 MG IVP (10:33)
[2024-04-23] MEDS: etomidate 2 mg/mL INJ SDV 10 mL 20 MG IVP (10:33)
--- NOTE | 2024-04-23 10:34 | ECG_ITS ---
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 Measurements Intervals [place] Rate: 57 P: 0 AL: 0 QRS: -70 QRSD: 292 T: 0 QT: 439 QTc: 431 Interpretive Statements Possible junctional rhythm with PVCs INDETERMINATE AXIS RIGHT BUNDLE BRANCH BLOCK [120+ ms QRS DURATION, UPRIGHT V1, 40+ ms S IN I/aVL/V4/V5/V6] INTERPRETATION BASED ON A DEFAULT AGE OF 40 YEARS Compared to ECG 08/20/2023 09:43:20 Indeterminate axis now present Right bundle-branch block now present Sinus rhythm no longer present Left anterior fascicular block no longer present Left ventricular hypertrophy no longer present ST (T wave) deviation no longer present Electronically Signed On 04-23-2024 21:28:36 CDT by Gurwinder Lu M.D. [email or web address] jamison
[2024-04-23] MEDS: EPINEPHrine 0.1 mg/mL SYR 10 mL 1 MG IVP ×7 (10:37→11:01)
[2024-04-23] MEDS: sodium chloride 0.9% 1,000 ML 999 ML IV (10:38)
[2024-04-23 10:40] VITALS: BP 93/56; PULSE 61; BMI 31.0
[2024-04-23] MEDS: amiodarone 50 mg/mL SDV 3 mL 150 MG IVP (10:40)
[2024-04-23 10:41] LABS: Glucose Point of Care 213 mg/dL (70-110)
[2024-04-23] MEDS: calcium chloride 10% Syr 10 mL 1 GM IVP ×2 (10:45→10:50)
[2024-04-23] MEDS: sodium bicarbonate 8.4% 1 mEq/mL 50mL Syr 50 MEQ IV ×2 (10:49→11:00)
--- NOTE | 2024-04-23 10:52 | PC.NURSE ---
PATIENT WAS FOUND DOWN IN THE ER PARKING LOT BY REGISTRATION. SECURITY FILM REVIEWED AND PATIENT GOT OUT OF VEHICLE, STUMBLED AND THEN FELL HITTING THE GROUND FACE FIRST. PATIENT HAD BLOOD COVERING FACE. PATIENT UNABLE TO MAKE SENSE AND WAS STUMBLING AND STRUGGLING TO STAND WHEN NURSES REACHED HIM. PATIENT BROUGHT BACK IMMEDIATELY TO ROOM 11 WERE CPR WAS INITIATED AFTER FINDING NO PULSE. PATIENT INTUBATED BY JET AT 1033. IO PLACED, 18G IV R AC, LAMB PLACED.
[2024-04-23 10:53] LABS: Basophils % 0.2 %; Eosinophils # 0.1 10^3/uL (0.0-0.8); Hematocrit 47.8 % (37-53); Lymphocytes % 42.2 %; Mean Corpuscular HGB Conc 32.8 g/dL (30-55); Mean Corpuscular Volume 94.3 fl (82-101); Mean Platelet Volume 12.9 fL (7.4-10.4); Monocytes # 0.4 10^3/uL (0.2-0.9); Neutrophils # 4.97 10^3/uL (1.8-7.7); Neutrophils % 51.9 %; Nucleated Red Blood Cells % 0 %; Platelet Count 133 10^3/cmm (157-399); Red Blood Count 5.07 10^6/uL (3.85-5.65); Red Cell Distribution Width 12.8 % (12.1-15.1); White Blood Count 9.58 10^3/uL (3.29-11.43)
[2024-04-23 10:59] LABS: ABG PH Result 7.48 (7.35-7.45); Arterial Blood Gas Hematocrit 51.8 % (42-52); Base Excess ABG -8.5 mmol/L (-2.0-2.0); Blood Gas Operator Identificat GD; Blood Gas Sample Site Not specified; Blood Gas Sample Type Arterial; Carboxyhemoglobin 0.2 %THgb (0.4-20.1); HCO3 ABG 11.2 mmol/L (22-26); HGB O2 Sat 98.9 % (95-100); Ionized Calcium Level - ABG 1.1 mmol/L (1.1-1.4); Methemoglobin 0.9 % (0.4-1.5); Oxygen Device AMBU; Oxygen Saturation ABG > 100.0; Potassium Level - ABG 3.7 mmol/L (3.5-5.0); Total Hemoglobin 16.9 g/dL (14-18)
--- NOTE | 2024-04-23 11:03 | PC.NURSE ---
TOD 1103.
[2024-04-23 11:09] LABS: Alanine Aminotransferase 36 U/L (0-41); Albumin Level 4.2 g/dL (3.5-5.2); Alkaline Phosphatase 75 U/L (40-130); Aspartate Amino Transferase 33 U/L (0-40); Blood Urea Nitrogen 18 mg/dL (8-23); Calcium 9.2 mg/dL (8.5-10.5); Carbon Dioxide 21 mmol/L (22-29); Chloride 101 mmol/L (98-107); Creatinine Clr Calc Pharmacy 63.1072; Globulin 3.2 g/dL (1.3-4.6); Glomerular Filtration Rate 51.5 mL/min (90-130); Glucose 245 mg/dL (65-115); Osmolality Calculated 304 mOsm/kg (285-295); Sodium 142 mmol/L (136-145); Total Bilirubin 0.5 mg/dL (0.15-1.2); Total Protein 7.4 g/dL (6.6-8.7)
[2024-04-23 11:10] LABS: ABG PCO2 15.1 mmHg (35-45)
[2024-04-23 11:13] LABS: Anion Gap 23.3 (5-19); Potassium 3.3 mmol/L (3.5-5.1)
[2024-04-23 11:14] LABS: Lactic Sepsis W/Reflex 7.3 mmol/L (0.5-2.2)
[2024-04-23 11:21] LABS: INR 1.02 (0.8-1.2)
[2024-04-23 11:22] LABS: Partial Thromboplastin Time 24.6 SECONDS (23.9-36.7)
--- NOTE | 2024-04-23 11:40 | ED_ITS ---
HPI - General Adult 2 General: Chief complaint: Cardiac Arrest/CPR Stated complaint: code blue Time Seen by Provider: 04/23/24 10:37 History of Present Illness: 59-year-old male brought in from the [employer] [facility] lot after having been found down by a bystander. He had parked outside of the line of sight from the lobby and collapsed by his car. He was bleeding from his face bystander came and told registration our nursing staff went out to the parking lot placed him in a wheelchair he was poorly responsive mumbling a bit at that time they brought him directly back I encountered him in the hallway and he was directed to the trauma bay. On arrival there patient is having agonal breathing and by the time we had placed him on the exam cot he was pulseless. CPR was initiated along with other ACLS protocols see notes below. All other history is obtained by reviewing his previous charts which was done by myself during the code. Review of Systems 2 General: Reports: ROS unobtainable due to endotracheal tube and ROS unobtainable due to medical condition PFSH ED 2 PFSH: Medical History Aortic stenosis Coronary artery disease Elevated troponin Murmur Valvular heart disease HTN (hypertension) Pre-diabetes Nephrolithiasis Restless leg syndrome Social History Smoking and tobacco/nicotine status: former use of tobacco/nicotine Quit status (tobacco/nicotine): has quit using Physical Exam 2 Narrative: EXAM NARRATIVE: Initially arrived with agonal rhythm shortly after went into cardiopulmonary arrest Procedures Intubation sedative: Etomidate Mg Given: 20 paralytic: Succinylcholine Mg Given: 120 Assist Device Used: fiber optic device ET Tube Size: 8.5 ET Tube Uncuffed: No Tube Secured Depth (cm): 22 Tube Placement Confirmation: visualized tube passing through cords, equal breath sounds bilaterally, no breath sounds over epigastrium and confirmation by capnometry Patient Tolerated Procedure: well Intubation Complications: none Course 2 Vital Signs: Vital signs: Vital Signs Pulse Rate 61 04/23/24 10:40 Blood Pressure 93/56 04/23/24 10:40 MDM - General Adult Medical Decision Making See the code flow sheet for exact details on medications given. Patient initially began radiating down he was given atropine was in cardiac arrest and then CPR started we briefly achieved ROSC with a pulse then he went into cardiac arrest once more. Patient intubated by RSI. Rhythm initially was in sustained V-fib he was given epi as well as amiodarone and defibrillated multiple times. Patient rhythm devolved into PEA and then asystole. After reviewing his notes during the code found that he previously had an episode like this he had an angiogram that showed no coronary artery disease had no history of DVT or PE did have a history of chronic kidney disease he was treated empirically for hyperkalemia is calcium chloride and sodium bicarb. Despite all these efforts he maintained in asystole. After approximately 25 to 27 minutes of resuscitative efforts family was consulted they asked that we stop resuscitative efforts given the length of time time that we had been doing CPR and his failure to respond is felt that his likelihood of meaningful recovery was very very unlikely. Knowing this the family did not wish for us to continue efforts and resuscitative efforts were ceased. Dr. Mustafa assisted me in this and he also concurred given our known history at the time that there was no more meaningful resuscitative efforts to be provided. After reviewing the security tapes were able to determine the patient was down approximately 5 to 6 minutes before bystander noticed him in the parking lot and our staff was called. First blood gas was actually quite good given the circumstances. Given this I do not believe he had a pulmonary embolism. His EKG showed an idioventricular rhythm initially and then later showed sustained V-fib. Based on this and his previous cardiac arrest 1 year ago with normal coronary angiogram suspect patient developed a fatal cardiac arrhythmia. . Also reviewed the echocardiogram that was done in August 2023. Angiogram done on August 21 2023 did not show significant coronary artery disease. Medical Records I reviewed the patient's medical records. Lab Data I reviewed the patient's lab results. 04/23/24 10:37 04/23/24 10:37 Laboratory Results WBC 9.58 10^3/uL (3.29-11.43) 04/23/24 10:37 RBC 5.07 10^6/uL (3.85-5.65) 04/23/24 10:37 Hgb 15.70 g/dL (11.27-16.99) 04/23/24 10:37 Hct 47.8 % (37-53) 04/23/24 10:37 MCV 94.3 fl (82-101) 04/23/24 10:37 MCH 31.0 pg (27-33) 04/23/24 10:37 MCHC 32.8 g/dL (30-55) 04/23/24 10:37 RDW 12.8 % (12.1-15.1) 04/23/24 10:37 Plt Count 133 10^3/cmm (157-399) L 04/23/24 10:37 MPV 12.9 fL (7.4-10.4) H 04/23/24 10:37 Neut % (Auto) 51.9 % 04/23/24 10:37 Lymph % (Auto) 42.2 % 04/23/24 10:37 [place] % (Auto) 4.0 % 04/23/24 10:37 Eos % (Auto) 1.0 % 04/23/24 10:37 Baso % (Auto) 0.2 % 04/23/24 10:37 Neut # (Auto) 4.97 10^3/uL (1.8-7.7) 04/23/24 10:37 Lymph # (Auto) 4.0 10^3/uL (0.8-4.8) 04/23/24 10:37 [place] # (Auto) 0.4 10^3/uL (0.2-0.9) 04/23/24 10:37 Eos # (Auto) 0.1 10^3/uL (0.0-0.8) 04/23/24 10:37 Baso # (Auto) 0.0 10^3/uL (0.0-0.1) 04/23/24 10:37 Nucleated RBC % (auto) 0 % 04/23/24 10:37 Nucleated RBCs # 0.0 /100WBC 04/23/24 10:37 PT 13.70 SECONDS (12.1-14.9) 04/23/24 10:37 INR 1.02 (0.8-1.2) 04/23/24 10:37 APTT 24.6 SECONDS (23.9-36.7) 04/23/24 10:37 Specimen Type Arterial 04/23/24 10:35 Sample Site Not specified 04/23/24 10:35 ABG pH 7.48 (7.35-7.45) H 04/23/24 10:35 ABG pCO2 15.1 mmHg (35-45) L* 04/23/24 10:35 ABG pO2 227.0 mmHg (80.0-100.0) H 04/23/24 10:35 ABG HCO3 11.2 mmol/L (22-26) L 04/23/24 10:35 ABG O2 Saturation > 100.0 04/23/24 10:35 ABG Base Excess -8.5 mmol/L (-2.0-2.0) L 04/23/24 10:35 Chuck Test N/a 04/23/24 10:35 A-a O2 Gradient Not Reportable 04/23/24 10:35 Hematocrit 51.8 % (42-52) 04/23/24 10:35 Hgb O2 Saturation 98.9 % (95-100) 04/23/24 10:35 Carboxyhemoglobin 0.2 %THgb (0.4-20.1) L 04/23/24 10:35 Methemoglobin 0.9 % (0.4-1.5) 04/23/24 10:35 Total Hemoglobin 16.9 g/dL (14-18) 04/23/24 10:35 Sodium 141.0 mmol/L (131-143) 04/23/24 10:35 Potassium 3.7 mmol/L (3.5-5.0) 04/23/24 10:35 Glucose 258.0 mg/dL (70-115) H 04/23/24 10:35 Ionized Calcium 1.1 mmol/L (1.1-1.4) 04/23/24 10:35 O2 Delivery Device Ambu 04/23/24 10:35 Package Center Supervisor ID [id number] 04/23/24 10:35 Sodium 142 mmol/L (136-145) 04/23/24 10:37 Potassium 3.3 mmol/L (3.5-5.1) L 04/23/24 10:37 Chloride 101 mmol/L (98-107) 04/23/24 10:37 Carbon Dioxide 21 mmol/L (22-29) L 04/23/24 10:37 Anion Gap 23.3 (5-19) H 04/23/24 10:37 BUN 18 mg/dL (8-23) 04/23/24 10:37 Creatinine 1.4 mg/dL (0.7-1.2) H 04/23/24 10:37 GFR Calculation 51.5 mL/min (90-130) L 04/23/24 10:37 Glucose 245 mg/dL (65-115) H 04/23/24 10:37 POC Glucose 213 mg/dL (70-110) H 04/23/24 10:38 Calculated Osmolality 304 mOsm/kg (285-295) H 04/23/24 10:37 Lactic Acid 7.3 mmol/L (0.5-2.2) H* 04/23/24 10:37 Calcium 9.2 mg/dL (8.5-10.5) 04/23/24 10:37 Total Bilirubin 0.5 mg/dL (0.15-1.2) 04/23/24 10:37 AST 33 U/L (0-40) 04/23/24 10:37 ALT 36 U/L (0-41) 04/23/24 10:37 Alkaline Phosphatase 75 U/L (40-130) 04/23/24 10:37 Total Protein 7.4 g/dL (6.6-8.7) 04/23/24 10:37 Albumin 4.2 g/dL (3.5-5.2) 04/23/24 10:37 Globulin 3.2 g/dL (1.3-4.6) 04/23/24 10:37 No radiology studies performed this visit Critical Care Time 2 Critical Care Time: Critical Care Time: Yes Total Critical Care Time: 40 Attestation: The high probability of a clinically significant, sudden or life threatening deterioration of the patient's cardiovascular respiratory system(s) required my full and direct attention, intervention and personal management. The critical care time is as shown. This time is in addition to time spent performing any reported procedures but includes the following: [x] Data and vital sign review and interpretation [x] Patient assessment, examination and intervention [x] Documentation [x] Medication orders and management Discharge Plan Discharge Patient Disposition: Clinical Impression: Sudden cardiac due to cardiac arrhythmia Condition: Stable Prescriptions: No Action metformin 500 mg tablet 500 mg PO DAILY Lipitor 20 mg Tablet 20 mg PO DAILY lisinopril 20 mg Tablet 20 mg PO DAILY Flomax 0.4 mg Capsule 0.4 mg PO DAILY allopurinol 300 mg tablet 300 mg PO DAILY amitriptyline 25 mg tablet 25 mg PO BEDTIME Referrals: Charles Driver MD [Primary Care Provider] - Coding Level of Care Code ED Returned Goods Inspector for Heriberto Cordova
--- NOTE | 2024-04-23 13:11 | PC.NURSE ---
CODE BLUE; Pt found in agonal rhythm in parking lot. Brought to ER 11. Intubated @1033. 120 succs, and 20 Etom IVP. 8.5 ETT. 22 @teeth. 1031- IO to right leg. Atropine IVP. 1033- Pt intubated. 1033- EKG completed. Lab orders; CBC, CMP, CBC, BMP, Lactic Acid, PT, PTT, Trop Series, UA, ABG, STAT CXR, and Blood Cultures. 1034- Levo started. 1036- Vfib. Shock. CPR. 1037 Epi IVP, 1L NS bolus. Levo paused. 1038- Pulse Check/Vfib. Shock. CPR resumed 1040- Epi IVP 1041- Pulse Check/Vfib. Shock. CPR resumed. 1041- Amio IVP 1042- Calcium Chloride IVP 1043- Pulse Check/PEA. CPR resumed. 1043- Epi IVP 1044- 1 Amp Sodium Bicarb IVP 1045- Pulse Check/PEA. CPR resumed 1046- Epi IVP 1047- Pulse Check/PEA. CPR resumed 1049- Pulse Check/PEA. CPR resumed 1049- Epi IVP 1050- 1 Amp Sodium Bicarb IVP 1051- Sodium Chloride IVP 1051- Pulse Check/Asystole. CPR resumed 1053- Pulse Check/ Asystole. CPR resumed 1054- Epi IVP 1055- Pulse Check/Asystole. CPR resumed. 1057- Pulse Check/Asystole. CPR resumed. 1057- Epi IVP 1100- Pulse Check/ Asystole. CPR resumed 1101- Epi IVP 1102- Pulse Check/Asystole. CPR resumed 1103- Pts family requests CPR to be stopped. Asystole. TOD called @1103
--- NOTE | 2024-04-23 13:45 | PC.NURSE ---
MTS notified of patient passing @1172. Ref. #[id number]
--- NOTE | 2024-04-23 13:46 | PC.NURSE ---
MTS released. [facility] in [place] contacted for transport.
== END 2024-04-23 11:03 | disposition expired ==
PROVIDERS: Emergency Provider Family Medicine; PCP Family Medicine
DX: I49.9 Cardiac arrhythmia, unspecified (principal); I46.2 Cardiac arrest due to underlying cardiac condition; Z79.84 Long term (current) use of oral hypoglycemic drugs; I25.10 Atherosclerotic heart disease of native coronary artery without angina pectoris; I10 Essential (primary) hypertension; Z87.891 Personal history of nicotine dependence
CPT/HCPCS: 31500; 36416; 51702; 80051; 80053; 82330; 82805; 82962; 83605; 85025; 85610; 85730; 87040; 93005; 94799; 96361; 96374; 96375; 99291; 99292; J0171; J0282; J0330; J3490; J7030